=== PATIENT | male | born 1950 | race Caucasian/White ===

== ENCOUNTER → 2020-10-11 14:37 | Outpatient (BNVA) | payer MEDICARE, SELFPAY | PROVIDERS: PCP Internal Medicine; Visit Provider Internal Medicine | DX: B20 Human immunodeficiency virus [HIV] disease (principal) | CPT/HCPCS: 99202 ==

== ENCOUNTER 2020-12-16 16:01 | Emergency (ER) | payer MEDICARE, SELFPAY ==
--- NOTE | ~2020-12-16 | XR_ITS ---
EXAMINATION: XR CHEST CLINICAL INFORMATION: Shortness of breath COMPARISON: None TECHNIQUE: Frontal view of the chest was obtained. Examination is limited secondary to patient rotation. FINDINGS: The cardiac silhouette is normal in size. Patient is status post valve replacement. Retained epicardial pacing wires suspected. The lungs are well aerated. There is no lobar consolidation. No pleural effusion or pneumothorax. XR/XR chest 1V IMPRESSION: No acute pulmonary pathology.
[2020-12-16 16:18] VITALS: BP 153/110; PULSE 95; RESP 20; TEMP 36.5; O2SAT 96; BMI 19.0
--- NOTE | 2020-12-16 16:37 | ECG_ITS ---
Test Reason : SOB Blood Pressure : / mmHG Vent. Rate : 096 BPM Atrial Rate : 096 BPM P-R Int : 168 ms QRS Dur : 126 ms QT Int : 354 ms P-R-T Axes : 036 -73 108 degrees QTc Int : 447 ms Normal sinus rhythm Left axis deviation Left ventricular hypertrophy with QRS widening and repolarization abnormality Inferior infarct , age undetermined Abnormal ECG No previous ECGs available Referred By: Generic ED Physician Electronically Signed By:GRANT BARNARD
[2020-12-16 17:01] LABS: Hemoglobin 16.1 g/dl (14.0-18.0); Imm Gran Abs Auto 0.04 X10*3/uL (0.00-0.03); Imm Gran Pct Auto 0.4 % (0.0-0.4); MANUAL DIFF FLAG SCAN; Mean Corpuscular HGB Conc 33.3 g/dl (31.0-36.0); PLT CLUMP 1; SCAN SMEAR FLAG 1
[2020-12-16 17:03] LABS: Basophils Percent Auto 0.2 % (0-2); Eosinophils Absolute Auto 0.1 X10*3/uL (0.0-0.4); Eosinophils Percent Auto 0.5 % (0-4); Hematocrit 48.4 % (42-52); Lymphocytes Percent Auto 9.6 % (20-40); Mean Corpuscular Hemoglobin 31.4 pg (27.0-33.0); Mean Corpuscular Volume 94.3 fL (80-98); Mean Platelet Volume 11.1 fL (9.4-12.4); Monocytes Absolute Auto 0.7 X10*3/uL (0.1-1.2); Monocytes Percent Auto 6.5 % (2-11); Neutrophils Absolute Auto 8.9 X10*3/uL (2.0-8.3); Neutrophils Percent Auto 82.8 % (45-73); Platelet Count 102 X10*3/uL (160-400); Red Blood Count 5.13 X10*6/uL (4.60-5.80); Red Cell Distribution Width 17.6 % (11.0-16.0); White Blood Count 10.7 X10*3/uL (4.8-10.8)
[2020-12-16 17:05] LABS: INTERNATIONAL NORM RATIO 2.1 (0.9-1.1)
[2020-12-16 17:08] LABS: D Dimer 245 NG/ML; Partial Thromboplastin Time 49.8 SEC (24.1-38.0)
--- NOTE | 2020-12-16 17:15 | ED.SOB ---
HPI - SOB/Dyspnea General Chief Complaint: Dyspnea Stated Complaint: SOB Time Seen by Provider: 12/16/20 16:42 Source: patient Mode of arrival: EMS Limitations: no limitations History of Present Illness HPI Narrative: 70-year-old male who presents emergency department for evaluation of shortness of breath and dyspnea on exertion. The patient states that he had similar symptoms approximately 4 days prior and was hospitalized at [facility]. He states that he was hospitalized for 3 days for congestive heart failure. He states that he signed himself out yesterday against medical advice because he was not getting his HIV medications and this was making him upset. He states he did feel better when he left [facility]. He states that today he was watching television when he had a gradual onset of shortness of breath. He states that his symptoms got worse to the point where he is having trouble breathing and had significant dyspnea on exertion. He denied chest pain, fever, chills, cough, nausea, vomiting or diarrhea. He currently states that he feels like he needs oxygen and his O2 saturation while he is having this symptom was 97% on room air. The patient believes that he was treated with Lasix while he was at [facility] but does not believe that he is taking Lasix at this time. The patient is HIV positive and is currently taking Biktarvy. He recently transferred his care to our infectious disease physician and I do not have any baseline HIV viral studies on him. I did receive a discharge summary from [facility] admission date was 12/12/2020, discharged today was 12/16/2020-AMA. The patient presented to [facility] with 1 week of exertional dyspnea. According to discharge summary diagnosis was acute on chronic systolic heart failure and he was treated with Lasix 40 mg IV. He had an EF of 20-25%, aortic valve replacement 2008, on Coumadin. Patient also had a recent booster shot for his COVID-19 5 0 vaccination and was noted to have elevated troponins, the concern was that this may be secondary to demand ischemia verses vaccine induced myocarditis. Patient states that he was prescribed furosemide in the past has an old prescription for furosemide 40 mg. He states that he did take 40 mg tablet today but does not take furosemide on a regular basis. Related Data Home Medications Medication Instructions Recorded Confirmed aspirin 81 mg tablet,delayed 81 mg PO DAILY 10/11/20 release atorvastatin 80 mg tablet 80 mg PO DAILY 10/11/20 bictegravir 50 mg-emtricitabine 1 tab PO DAILY 10/11/20 200 mg-tenofovir alafenam 25 mg tablet (Biktarvy) bupropion HCl 150 mg 24 hr tablet, 150 mg PO QAM 10/11/20 extended release carvedilol 12.5 mg tablet (Coreg) 12.5 mg PO BID 10/11/20 digoxin 125 mcg (0.125 mg) tablet 125 mcg PO DAILY 10/11/20 finasteride 5 mg tablet (Proscar) 5 mg PO DAILY 10/11/20 lisinopril 5 mg tablet 5 mg PO DAILY 10/11/20 lithium carbonate 300 mg capsule 300 mg PO BEDTIME 10/11/20 warfarin 5 mg tablet 5 mg PO DAILY 10/11/20 Previous Rx's Medication Instructions Recorded alprazolam 1 mg tablet (Xanax) 1 mg PO BEDTIME 30 Days #30 tab 10/11/20 furosemide 20 mg tablet (Lasix) 20 mg PO DAILY #30 tab 12/16/20 Allergies Allergy/AdvReac Type Severity Reaction Status Date / Time rifampin Allergy Severe bleeding Verified 12/16/20 16:24 asparaginase Allergy Intermediate rash Verified 12/16/20 16:24 efavirenz Allergy Intermediate mental Verified 12/16/20 16:24 status change stavudine Allergy Intermediate rash Verified 12/16/20 16:24 zidovudine Allergy Intermediate anxiety Verified 12/16/20 16:24 Review of Systems Review of Systems: Yes all other systems are reviewed and are negative [facility] Past Medical History [facility] Narrative: Social history: The patient denies tobacco, alcohol and drug use. Medical History Arrhythmia CHF (congestive heart failure) Chronic insomnia Depression HIV (human immunodeficiency virus infection) HIV (human immunodeficiency virus infection) HTN (hypertension) Hyperlipidemia Non-Hodgkin lymphoma Surgical History Hx of appendectomy Mechanical heart valve present Social History Social History Patient Tobacco Use Status: Never used Tobacco Use of substances other than those prescribed or required for medical reasons: No Advance Directives: No Advance Directives Information Provided: No Physical Exam Vital Signs: Vital Signs: Last Vital Signs Temp 97.7 F 12/16/20 16:18 Pulse 90 12/16/20 18:11 Resp 26 H 12/16/20 18:11 BP 158/100 H 12/16/20 18:11 Pulse Ox 97 12/16/20 18:11 Body Mass Index 19.0 Const: Other: Very thin, chronically ill-appearing male, pleasant, cooperative, answers all questions appropriately, does not appear to be in respiratory distress. HENMT: Head: Yes normal to inspection, Yes normocephalic and Yes atraumatic Ears: external ears normal General nose exam: Normal external nose present Face and sinus: Yes normal facial exam Mouth: Normal oral and palatal mucosa present Throat: Yes posterior oropharynx normal Eyes: General: appearance normal, both eyes and all related structures Pupils: Equal, round and reactive pupils present Neck: Neck: Yes normal visual inspection, Yes no lymphadenopathy, Yes trachea midline and Yes supple Chest: Chest palpation & inspection: normal inspection of the chest and normal palpation of entire chest wall Resp: Effort & Inspection: normal respiratory effort and able to speak in complete sentences Auscultation: clear to auscultation bilaterally Cardio: Rate: regular rate Rhythm: regular rhythm Heart sounds: S1 normal heart sound present, S2 normal heart sound present and no murmurs GI: Inspection: Yes normal to inspection Palpation (GI): Soft to palpation, nontender and no guarding Auscultation: normal bowel sounds : General: Yes no CVA tenderness Back/Spine/Pelvis: Back: no CVA tenderness Skin: General skin exam: no rashes or lesions noted Neuro: Cranial nerves: Yes CN's II-XII intact bilaterally and Yes Equal, round and reactive pupils present Cognition (Neuro): normal cognition Motor exam (neuro): 5/5 motor strength present throughout Extrem: General: Yes normal to inspection Psych: Appearance: grossly normal Speech and movement: Normal speech and movement present Affect: normal affect Attitude: cooperative Thought process: Normal thought process present Thought content: Normal thought content present Course Course Course Narrative: 70-year-old male who presents emergency department for evaluation of gradual onset of shortness of breath that started today, patient was recently hospitalized at [facility] from 12/12/2020 until 12/15/2020 for acute on chronic congestive heart failure and elevated troponins. The patient left against medical advice. Vital signs reveal that he was afebrile with a temperature of 97.7?, respiratory rate was 20, pulse was 95 and O2 saturation was 96% on room air. Patient was hypertensive with a blood pressure of 153/110. Physical examination was otherwise unremarkable. I ordered a laboratory evaluation to include CBC, CMP, liver panel, PTT, PT/INR, D-dimer, COVID/influenza/RSV, digoxin level, troponin EKG. 1723: Patient's laboratory evaluation revealed a followed elevations, potassium 5.3, BUN 30, AST 46, ALT 61, alk-phos 133, T bili 2.6. Patient's INR was therapeutic at 2.1. ProBNP was elevated at 3676. Chest x-ray revealed no acute process according the radiologist reading. COVID 19, influenza and RSV were negative. Patient's high sensitivity troponin was elevated at 477 , repeat was ordered for 7:45 p.m. 2110: The patient's repeat high sensitivity troponin was 466.9 which was not significantly increased. I suspect that the patient's elevated troponin is chronic and may be related to his cardiomyopathy. The patient is feeling better and did have significant diuresis after receiving IV Lasix. The patient was given a prescription for Lasix (furosemide) 20 mg once a day. He is also advised to restrict his fluid intake to 1 L of fluid per day. The patient was discharged home. The patient was given verbal and printed instructions prior to discharge. The patient was advised to follow-up with his PCP in 2 days and to return to the emergency department if his symptoms get worse or if he develops any new symptoms that are concerning to him. MDM - SOB/Dyspnea Lab Data Result diagrams: 12/16/20 16:52 12/16/20 17:51 Labs: Lab Results 12/16/20 12/16/20 12/16/20 Range/Units 16:52 16:52 16:52 WBC 10.7 (4.8-10.8) X10*3/uL RBC 5.13 (4.60-5.80) X10*6/uL Hgb 16.1 (14.0-18.0) g/dl Hct 48.4 (42-52) % MCV 94.3 (80-98) fL MCH 31.4 (27.0-33.0) pg MCHC 33.3 (31.0-36.0) g/dl RDW 17.6 H (11.0-16.0) % Plt Count 102 L (160-400) X10*3/uL MPV 11.1 (9.4-12.4) fL Immature Gran % (Auto) 0.4 (0.0-0.4) % Neut % (Auto) 82.8 H (45-73) % Lymph % (Auto) 9.6 L (20-40) % Jasper % (Auto) 6.5 (2-11) % Eos % (Auto) 0.5 (0-4) % Baso % (Auto) 0.2 (0-2) % Lymph # (Auto) 1.0 L (1.2-4.9) X10*3/uL Jasper # (Auto) 0.7 (0.1-1.2) X10*3/uL Eos # (Auto) 0.1 (0.0-0.4) X10*3/uL Baso # (Auto) 0.0 (0.0-0.2) X10*3/uL Abs Immat Gran (auto) 0.04 H (0.00-0.03) X10*3/uL Absolute Neuts (auto) 8.9 H (2.0-8.3) X10*3/uL Absolute Nucleated RBC 0.000 (0.0-0.012) X10*3/uL Nucleated RBC % (auto) 0.0 (0.0-0.2) /100WBC Smear Tech's Comments VERIFIED PT (9.9-13.0) SEC INR (0.9-1.1) APTT (24.1-38.0) SEC D-Dimer NG/ML Sodium (135-145) mmol/L Potassium (3.3-5.1) mmol/L Chloride (96-108) mmol/L Carbon Dioxide (22-29) mmol/L Anion Gap (12-20) BUN (9-16) mg/dL Creatinine (0.5-1.4) mg/dL Estim Creat Clear Calc Estimated GFR Random Glucose (60-115) mg/dL Calcium (8.4-10.2) mg/dL Total Bilirubin (0.0-1.0) mg/dL Direct Bilirubin (0.0-0.5) mg/dL AST (5-37) U/L ALT (0-40) U/L Alkaline Phosphatase (39-117) U/L Troponin I High Sens (<3.5-35.0) ng/L B-Natriuretic Peptide 3676 H (<100) pg/mL Total Protein (6.5-8.0) g/dL Albumin (3.5-5.0) g/dL Digoxin (0.8-2.0) ng/mL Coronavirus (PCR) NEGATIVE (Negative) Influenza Type A (PCR) NEGATIVE (Negative) Influenza Type B (PCR) NEGATIVE (Negative) RSV RNA Qual (PCR) NEGATIVE (Negative) 12/16/20 12/16/20 12/16/20 Range/Units 16:52 16:52 17:51 WBC (4.8-10.8) X10*3/uL RBC (4.60-5.80) X10*6/uL Hgb (14.0-18.0) g/dl Hct (42-52) % MCV (80-98) fL MCH (27.0-33.0) pg MCHC (31.0-36.0) g/dl RDW (11.0-16.0) % Plt Count (160-400) X10*3/uL MPV (9.4-12.4) fL Immature Gran % (Auto) (0.0-0.4) % Neut % (Auto) (45-73) % Lymph % (Auto) (20-40) % Jasper % (Auto) (2-11) % Eos % (Auto) (0-4) % Baso % (Auto) (0-2) % Lymph # (Auto) (1.2-4.9) X10*3/uL Jasper # (Auto) (0.1-1.2) X10*3/uL Eos # (Auto) (0.0-0.4) X10*3/uL Baso # (Auto) (0.0-0.2) X10*3/uL Abs Immat Gran (auto) (0.00-0.03) X10*3/uL Absolute Neuts (auto) (2.0-8.3) X10*3/uL Absolute Nucleated RBC (0.0-0.012) X10*3/uL Nucleated RBC % (auto) (0.0-0.2) /100WBC Smear Tech's Comments PT 24.0 H (9.9-13.0) SEC INR 2.1 H (0.9-1.1) APTT 49.8 H (24.1-38.0) SEC D-Dimer 245 NG/ML Sodium 139 (135-145) mmol/L Potassium 5.3 H (3.3-5.1) mmol/L Chloride 104 (96-108) mmol/L Carbon Dioxide 24 (22-29) mmol/L Anion Gap 16 (12-20) BUN 30 H (9-16) mg/dL Creatinine 1.16 (0.5-1.4) mg/dL Estim Creat Clear Calc 47.5 Estimated GFR > 60 Random Glucose 82 (60-115) mg/dL Calcium 9.3 (8.4-10.2) mg/dL Total Bilirubin 2.6 H (0.0-1.0) mg/dL Direct Bilirubin 1.1 H (0.0-0.5) mg/dL AST 46 H (5-37) U/L ALT 61 H (0-40) U/L Alkaline Phosphatase 133 H (39-117) U/L Troponin I High Sens 477.5 H* (<3.5-35.0) ng/L B-Natriuretic Peptide (<100) pg/mL Total Protein 7.0 (6.5-8.0) g/dL Albumin 3.8 (3.5-5.0) g/dL Digoxin (0.8-2.0) ng/mL Coronavirus (PCR) (Negative) Influenza Type A (PCR) (Negative) Influenza Type B (PCR) (Negative) RSV RNA Qual (PCR) (Negative) 12/16/20 12/16/20 Range/Units 17:51 19:58 WBC (4.8-10.8) X10*3/uL RBC (4.60-5.80) X10*6/uL Hgb (14.0-18.0) g/dl Hct (42-52) % MCV (80-98) fL MCH (27.0-33.0) pg MCHC (31.0-36.0) g/dl RDW (11.0-16.0) % Plt Count (160-400) X10*3/uL MPV (9.4-12.4) fL Immature Gran % (Auto) (0.0-0.4) % Neut % (Auto) (45-73) % Lymph % (Auto) (20-40) % Jasper % (Auto) (2-11) % Eos % (Auto) (0-4) % Baso % (Auto) (0-2) % Lymph # (Auto) (1.2-4.9) X10*3/uL Jasper # (Auto) (0.1-1.2) X10*3/uL Eos # (Auto) (0.0-0.4) X10*3/uL Baso # (Auto) (0.0-0.2) X10*3/uL Abs Immat Gran (auto) (0.00-0.03) X10*3/uL Absolute Neuts (auto) (2.0-8.3) X10*3/uL Absolute Nucleated RBC (0.0-0.012) X10*3/uL Nucleated RBC % (auto) (0.0-0.2) /100WBC Smear Tech's Comments PT (9.9-13.0) SEC INR (0.9-1.1) APTT (24.1-38.0) SEC D-Dimer NG/ML Sodium (135-145) mmol/L Potassium (3.3-5.1) mmol/L Chloride (96-108) mmol/L Carbon Dioxide (22-29) mmol/L Anion Gap (12-20) BUN (9-16) mg/dL Creatinine (0.5-1.4) mg/dL Estim Creat Clear Calc Estimated GFR Random Glucose (60-115) mg/dL Calcium (8.4-10.2) mg/dL Total Bilirubin (0.0-1.0) mg/dL Direct Bilirubin (0.0-0.5) mg/dL AST (5-37) U/L ALT (0-40) U/L Alkaline Phosphatase (39-117) U/L Troponin I High Sens 466.9 H* (<3.5-35.0) ng/L B-Natriuretic Peptide (<100) pg/mL Total Protein (6.5-8.0) g/dL Albumin (3.5-5.0) g/dL Digoxin 0.8 (0.8-2.0) ng/mL Coronavirus (PCR) (Negative) Influenza Type A (PCR) (Negative) Influenza Type B (PCR) (Negative) RSV RNA Qual (PCR) (Negative) Discharge Plan Discharge Clinical Impression: Congestive heart failure Patient Disposition: Home, Self-Care Instructions: Heart Failure (ED), Fluid Restriction (ED) Additional Instructions: Your laboratory evaluation suggests that you have fluid in your lungs (pulmonary edema/congestive heart failure). You received Lasix (furosemide) 40 mg IV. I am starting you on Lasix (furosemide) 20 mg orally once a day. You should restrict your fluid to no more than 1 L of fluid per day, although fluid restriction instructions. You do have an elevated high sensitivity troponin however the repeat 3 hour high sensitivity troponin was lower suggesting that have not had a heart attack today. Follow-up with your doctor in 2 days. Please return to the emergency department if your symptoms get worse or if you develop any symptoms that are concerning to you. Prescriptions: New furosemide [Lasix] 20 mg tablet 20 mg PO DAILY Qty: 30 RF: 0 No Action atorvastatin 80 mg tablet 80 mg PO DAILY RF: 0 Biktarvy 50-200-25 mg tablet 1 tab PO DAILY RF: 0 bupropion HCl 150 mg tablet extended release 24 hr 150 mg PO QAM RF: 0 digoxin 125 mcg (0.125 mg) tablet 125 mcg PO DAILY RF: 0 finasteride [Proscar] 5 mg tablet 5 mg PO DAILY RF: 0 lisinopril 5 mg tablet 5 mg PO DAILY RF: 0 lithium carbonate 300 mg capsule 300 mg PO BEDTIME RF: 0 warfarin 5 mg tablet 5 mg PO DAILY RF: 0 carvedilol [Coreg] 12.5 mg tablet 12.5 mg PO BID RF: 0 aspirin 81 mg tablet,delayed release (DR/EC) 81 mg PO DAILY RF: 0 alprazolam [Xanax] 1 mg tablet 1 mg PO BEDTIME 30 Days Qty: 30 RF: 0
[2020-12-16 17:29] LABS: B Type Natriuretic Peptide 3676 pg/mL (<100)
[2020-12-16 17:39] LABS: Troponin-I High Sensitivity 477.5 ng/L (<3.5-35.0)
[2020-12-16 17:50] LABS: SLIDE REVIEW VERIFIED
[2020-12-16] MEDS: Furosemide 40 MG/4 ML VIAL IVPUSH (18:07)
[2020-12-16 18:11] VITALS: BP 158/100; PULSE 90; RESP 26; O2SAT 97
[2020-12-16 18:21] LABS: Alanine Aminotransferase 61 U/L (0-40); Albumin Level 3.8 g/dL (3.5-5.0); Alkaline Phosphatase 133 U/L (39-117); Anion Gap 16 (12-20); Aspartate Amino Transferase 46 U/L (5-37); Bilirubin Direct 1.1 mg/dL (0.0-0.5); Bilirubin Total 2.6 mg/dL (0.0-1.0); Blood Urea Nitrogen 30 mg/dL (9-16); Calcium 9.3 mg/dL (8.4-10.2); Carbon Dioxide 24 mmol/L (22-29); Chloride 104 mmol/L (96-108); Creatinine Clr Calc Pharmacy 47.5; Estimated Glomerular Filt Rate > 60; Glucose Random 82 mg/dL (60-115); Potassium 5.3 mmol/L (3.3-5.1); Sodium 139 mmol/L (135-145)
[2020-12-16 18:28] LABS: Digoxin 0.8 ng/mL (0.8-2.0)
[2020-12-16 18:38] LABS: Influenza A PCR NEGATIVE (Negative); Influenza B PCR NEGATIVE (Negative); Resp Syncy Virus RNA Qual PCR NEGATIVE (Negative); SARS COV2 PCR INHOUSE NEGATIVE (Negative)
--- NOTE | 2020-12-16 19:41 | PC.NURSE ---
pt was standing up and urinating on the floor. pt cleaned up and repeat trop being drawn soon. pt denies any complaints. pt alert, respirations n/l. skin w/d. will continue to monitor pt.
[2020-12-16 20:56] LABS: Troponin-I High Sensitivity 466.9 ng/L (<3.5-35.0)
== END 2020-12-16 22:43 | disposition home or self-care (01) ==
PROVIDERS: Emergency Provider Emergency Medicine Emergency Medical Services; PCP Family Medicine
DX: I11.0 Hypertensive heart disease with heart failure (principal); I50.9 Heart failure, unspecified; Z20.822 Contact with and (suspected) exposure to COVID-19; R06.02 Shortness of breath; B20 Human immunodeficiency virus [HIV] disease; E78.5 Hyperlipidemia, unspecified; C85.90 Non-Hodgkin lymphoma, unspecified, unspecified site; Z79.01 Long term (current) use of anticoagulants; Z79.899 Other long term (current) drug therapy; Z79.02 Long term (current) use of antithrombotics/antiplatelets; Z79.82 Long term (current) use of aspirin
CPT/HCPCS: 0241U; 36415; 71045; 80048; 80076; 80162; 83880; 84484; 85025; 85379; 85610; 85730; 93005; 96374; 99284; 99285; J1940

== ENCOUNTER 2021-11-30 15:30 | Emergency (ER) | payer OTHER, MEDICARE, SELFPAY ==
[2021-11-30 15:48] VITALS: BP 112/58; BP 119/64; PULSE 61; RESP 20; TEMP 36.8; O2SAT 95; O2SAT 96; BMI 16.9
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
== END 2021-11-30 17:17 | disposition home or self-care (01) ==
PROVIDERS: Emergency Provider Emergency Medicine Emergency Medical Services
DX: Z04.1 Encounter for examination and observation following transport accident (principal)
CPT/HCPCS: 99282; 99284

== ENCOUNTER 2022-01-18 20:58 | Inpatient (IN) | payer MEDICARE, SELFPAY ==
--- NOTE | ~2022-01-18 | XR_ITS ---
EXAMINATION: XR CHEST CLINICAL INFORMATION: Shortness of breath COMPARISON: Previous chest x-ray 01/18/[address] from yesterday TECHNIQUE: Frontal view of the chest was obtained. FINDINGS: The cardiac and mediastinal contours are stable. Median sternotomy wires and heart valve and neoplastic rings. There is thick bandlike atelectasis or small infiltrate in the right upper lung that is unchanged. There is increasing atelectasis or small infiltrates at the lung bases, right greater than left. There are small bilateral pleural effusions, right greater than left. No pneumothorax. No acute bone abnormality. XR/XR chest 1V IMPRESSION: Increasing atelectasis or small infiltrates and small bilateral pleural effusions, right greater than left. Stable thick bandlike atelectasis or small infiltrate in the right midlung.
--- NOTE | ~2022-01-18 | CT_ITS ---
EXAMINATION: CT CHEST WITHOUT CONTRAST CLINICAL INFORMATION: Hypoxic. COMPARISON: Chest radiograph from 01/18/2022. TECHNIQUE: Multidetector volumetric CT imaging of the chest was done. Axial MIP volume rendering provided. Sagittal and coronal reformatted images were obtained. This CT examination was performed using dose optimization techniques as appropriate, variously including the following: *Automated exposure control. *Adjustment of mA and/or kV according to patient size (this includes techniques or standardized protocols for targeted exams where dose is matched to indication/reason for exam; i.e. extremities or head). *Use of iterative reconstruction technique. DLP: 295 mGy-cm FINDINGS: LUNGS: Small to moderate right-sided and small left-sided pleural effusions. No evidence of pneumothorax. No demonstrated pleural mass or thickening. Associated mild compressive atelectasis of the dependent lungs. Platelike airspace consolidation is demonstrated within the upper lobes bilaterally as well as the right lower lobe. Multiple tree-in-bud opacities are noted within the left lung apex and inferolateral aspects of the upper lobes bilaterally. Mucus plugging of multiple distal bronchioles in the upper lobes bilaterally. The central airways are largely patent. MEDIASTINUM: Changes of prior median sternotomy. Aortic valve replacement and ascending aortic grafting. Annular rings are noted associated with the mitral and tricuspid valves. Epicardial wires are noted along the left and right ventricles. Global cardiac enlargement including biatrial enlargement. No pericardial effusion. No mediastinal free fluid or gas. No hilar or mediastinal lymphadenopathy. Coronary artery calcifications: Present - moderate. AXILLA: No lymphadenopathy. UPPER ABDOMEN: Limited evaluation of the upper abdomen without significant soft tissue abnormalities. VASCULATURE: The thoracic aorta is otherwise of normal contour and caliber with moderate calcific atherosclerotic disease. OSSEOUS STRUCTURES: Moderate multilevel degenerative changes of the spine. Multiple partially healed lateral rib fractures bilaterally. Respiratory motion partially limits evaluation for acute rib fractures. However, there is no demonstrated overtly displaced fractures of this time. No suspicious lytic or sclerotic osseous lesions demonstrated. No soft tissue masses demonstrated. CT/CT chest wo IV con IMPRESSION: 1. Small to moderate right-sided and small left-sided pleural effusions with associated compressive atelectasis. 2. Multifocal platelike regions of airspace consolidation within the bilateral upper lobes as well as the right lower lobe. This may represent atelectatic change; however, additional scattered tree-in-bud opacities throughout the upper lobes may indicate a superimposed infectious/inflammatory process. 3. Global cardiac enlargement. Aortic valve replacement with ascending aortic grafting. Annuloplasty rings of the tricuspid and mitral valves. Coronary calcifications. Fleischner guidelines were followed.
--- NOTE | ~2022-01-18 | XR_ITS ---
EXAMINATION: XR CHEST CLINICAL INFORMATION: Shortness of breath. COMPARISON: 01/20/2022 chest radiograph. TECHNIQUE: Frontal view of the chest was obtained. FINDINGS: Support devices: Multilevel sternotomy wires in place without apparent change. Mitral valve prosthesis in place. External cardiac lead overlies the left cardiac margin without abnormality. Mild bibasilar opacification with tracking in the fissure on the right. Mild bibasilar linear markings. The heart and mediastinal structures are unremarkable. XR/XR chest 1V IMPRESSION: Mild interval increase in bilateral pleural effusions and atelectasis, right greater than left, a component which may be secondary to lower lung volumes.
--- NOTE | ~2022-01-18 | XR_ITS ---
EXAMINATION: XR CHEST CLINICAL INFORMATION: Shortness of breath COMPARISON: 01/22/2022 TECHNIQUE: Frontal view of the chest was obtained. FINDINGS: No significant change from previous. Right midlung opacity may be fluid in the major fissure with adjacent atelectasis or infiltrate. On the left obscuration of left hemidiaphragm once again seen consistent with atelectasis or infiltrate left base. No obvious failure. The cardiac silhouette is comparable to previous. XR/XR chest 1V IMPRESSION: No change from most recent previous. Findings suggest fluid/thickening in the minor fissure on the right with adjacent atelectasis or infiltrate and left basilar opacity is unchanged. No failure. Attention to follow-up
--- NOTE | ~2022-01-18 | XR_ITS ---
EXAMINATION: XR CHEST CLINICAL INFORMATION: Shortness of breath. COMPARISON: Chest radiograph dated 12/08/2020. TECHNIQUE: Frontal view of the chest was obtained. FINDINGS: The heart, great vessels, pulmonary vasculature and mediastinum are stable. There is stable mild cardiomegaly. There has been a prior cardiac valvuloplasty. External pacemaker leads are redemonstrated. No pulmonary vascular congestion or congestive heart failure is seen. There is moderate plate-like atelectasis at the mid right lung adjacent to the accessory fissure, which appears elevated. There is mild elevation of the right hemidiaphragm. No acute osseous abnormality is seen. XR/XR chest 1V IMPRESSION: 1. There is stable cardiomegaly. There has been a prior cardiac valvuloplasty. No congestive heart failure is seen. 2. No focal infiltrate is seen. 3. There is moderate plate-like atelectasis in the mid right lung. There is elevation of the right hemidiaphragm.
--- NOTE | ~2022-01-18 | CT_ITS ---
EXAMINATION: CT HEAD WITHOUT CONTRAST CLINICAL INFORMATION: Altered mental status. COMPARISON: None TECHNIQUE: Contiguous axial imaging was performed from the skull base to vertex without intravenous administration of contrast. This CT examination was performed using dose optimization techniques as appropriate, variously including the following: *Automated exposure control *Adjustment of mA and/or kV according to patient size (this includes techniques or standardized protocols for targeted exams where dose is matched to indication/reason for exam; i.e. extremities or head) *Use of iterative reconstruction technique DLP: 7:30 mGy-cm FINDINGS: There is no acute intra-axial, extra-axial bleed, collection, masses or midline shift. There is mild perivesical hypodensity in both cerebral hemispheres without mass effect. The lateral ventricles are symmetrical but slightly enlarged no abnormality seen in the posterior fossa. Bone windows no calvarial abnormality. There is no scalp soft tissue abnormality. There is complete opacification of right maxillary sinus. Rest of the paranasal sinuses and mastoid air cells are well-aerated. CT/CT head/brain wo IV con IMPRESSION: No acute intracranial process seen.
[2022-01-18 21:04] VITALS: BP 130/70; PULSE 100; RESP 20; O2SAT 94; BMI 19.3
--- NOTE | 2022-01-18 21:11 | ECG_ITS ---
Test Reason : DYSPNEA Blood Pressure : / mmHG Vent. Rate : 103 BPM Atrial Rate : 000 BPM P-R Int : 000 ms QRS Dur : 138 ms QT Int : 404 ms P-R-T Axes : 000 -73 108 degrees QTc Int : 529 ms Poor data quality, interpretation may be adversely affected Atrial fibrillation with rapid ventricular response Left axis deviation Non-specific intra-ventricular conduction block Minimal voltage criteria for LVH, may be normal variant ( Anthony product ) Inferior infarct (cited on or before 16-DEC-2020) Cannot rule out Anterior infarct , age undetermined T wave abnormality, consider lateral ischemia Abnormal ECG When compared with ECG of 16-DEC-2020 17:18, Atrial fibrillation has replaced Sinus rhythm Referred By: Tammi Nieves Electronically Signed By:GRANT BARNARD
[2022-01-18 21:15] VITALS: BP 120/90; PULSE 99; RESP 24; O2SAT 100
[2022-01-18 21:40] VITALS: PULSE 107; RESP 24; O2SAT 80
--- NOTE | 2022-01-18 21:41 | PC.NURSE ---
Dr Nieves at [facility]. Pt O2 dropping low, into 79%. Pt bumped from 10-15 LPM with no improvement. Respiratory aware, will start bipap per Dr Nieves.
[2022-01-18 21:48] LABS: Lactic Acid 1.2 mmol/L (0.5-2.0)
[2022-01-18 21:51] LABS: Prothrombin Time 76.5 SEC (10.0-13.1)
[2022-01-18] MEDS: Furosemide 100 MG/10 ML VIAL 60 MG IVPUSH (21:53)
[2022-01-18 21:59] LABS: COVID-19 Test Negative (Negative)
[2022-01-18 22:00] VITALS: PULSE 102; RESP 20; TEMP 36.5
--- NOTE | 2022-01-18 22:10 | ED_ITS ---
HPI - SOB/Dyspnea General Chief Complaint: Dyspnea Stated Complaint: sob Time Seen by Provider: 01/18/22 21:11 Source: patient and EMS Mode of arrival: EMS Limitations: no limitations History of Present Illness HPI Narrative: patient comes to the emergency room complaining of shortness of breath. Patient states it started approximately 4 days ago. Patient lives by himself with his dogs. Patient reports that this started becoming very uncomfortable, then he called EMS. EMS reports that when they arrived to the patient's residence, patient's oxygen saturation was 84% on room air. Patient is known to have CHF, denies history of asthma or COPD. Patient has history of AFib as well, he is currently on blood thinners. EMS started him on 15 L, oxygen saturation improve between mid 80s to mid 90s. patient states that he feels more comfortable breathing On 15 L. Denies chest pain. Patient states that he is compliant with his medications Related Data Home Medications Medication Instructions Recorded Confirmed aspirin 81 mg tablet,delayed 81 mg PO DAILY 10/11/20 release atorvastatin 80 mg tablet 80 mg PO DAILY 10/11/20 bictegravir 50 mg-emtricitabine 1 tab PO DAILY 10/11/20 200 mg-tenofovir alafenam 25 mg tablet (Biktarvy) bupropion HCl 150 mg 24 hr tablet, 150 mg PO QAM 10/11/20 extended release carvedilol 12.5 mg tablet (Coreg) 12.5 mg PO BID 10/11/20 digoxin 125 mcg (0.125 mg) tablet 125 mcg PO DAILY 10/11/20 finasteride 5 mg tablet (Proscar) 5 mg PO DAILY 10/11/20 lisinopril 5 mg tablet 5 mg PO DAILY 10/11/20 lithium carbonate 300 mg capsule 300 mg PO BEDTIME 10/11/20 warfarin 5 mg tablet 5 mg PO DAILY 10/11/20 Previous Rx's Medication Instructions Recorded alprazolam 1 mg tablet (Xanax) 1 mg PO BEDTIME 30 days #30 tabs 10/11/20 furosemide 20 mg tablet (Lasix) 20 mg PO DAILY #30 tabs 12/16/20 Allergies Allergy/AdvReac Type Severity Reaction Status Date / Time rifampin Allergy Severe bleeding Verified 12/16/20 16:24 asparaginase Allergy Intermediate rash Verified 12/16/20 16:24 efavirenz Allergy Intermediate mental Verified 12/16/20 16:24 status change stavudine Allergy Intermediate rash Verified 12/16/20 16:24 zidovudine Allergy Intermediate anxiety Verified 12/16/20 16:24 Review of Systems Review of Systems: Constitutional : No Weight loss, No Fever, No Chills, No Night Sweats, No Fatigue, No Malaise ENT/Mouth : No Hearing loss, No Ear Pain, No Nasal Congestion, No Sinus Pain, No Hoarseness, No sore throat, No Rhinorrhea, No Swallowing Difficulty Eyes: No Eye Pain, No Swelling, No Redness, No Foreign Body, No Discharge, No Vision Changes Cardiovascular : No Chest Pain, complaining of shortness of breath, worse with exertion, positive orthopnea, worsening lower extremity edema Respiratory : No Cough, No Sputum, No Wheezing, No Smoke Exposure, complaining of dyspnea Gastrointestinal : No Nausea, No Vomiting, No Diarrhea, No Constipation, No abdominal Pain, No Hematochezia, No Melena Genitourinary : no irregular bleeding, No Dysuria, No Urinary Frequency, No Hematuria, No Urinary Incontinence, No Urgency, No Flank Pain, No Urinary Flow Changes, No Hesitancy Musculoskeletal : No joint pain, No Myalgias, No Joint Swelling Skin : No Skin Lesions, No rash Neuro : No Weakness, No Numbness, No Paresthesias, No Loss of Consciousness, No Dizziness, No Headache Psych : No Anxiety/Panic, No Depression, No SI/HI/AH/VH, No Social Issues, Heme/Lymph: No Bruising, No Bleeding,No Lymphadenopathy Endocrine : No Polyuria, No Polydipsia, No Temperature Intolerance PMF Past Medical History Medical History Arrhythmia CHF (congestive heart failure) Chronic insomnia Depression HIV (human immunodeficiency virus infection) HIV (human immunodeficiency virus infection) HTN (hypertension) Hyperlipidemia Non-Hodgkin lymphoma Surgical History Hx of appendectomy Mechanical heart valve present Social History Social History Alcohol intake: never Patient Tobacco Use Status: Never used Tobacco Use of substances other than those prescribed or required for medical reasons: No Advance Directives: No Advance Directives Information Provided: No Physical Exam Vital Signs: Vital Signs: Last Vital Signs Temp 97.7 F 01/18/22 22:00 Pulse 102 H 01/18/22 22:00 Resp 20 01/18/22 22:00 BP 120/90 H 01/18/22 21:15 Pulse Ox 80 L 01/18/22 21:40 O2 Del Method 01/18/22 21:40 O2 Flow Rate 15 01/18/22 21:40 BMI result Body Mass Index 19.3 Const: Other: Appearance: Alert. Oriented X3. No acute distress. Eyes: Pupils equal, round and reactive to light. ENT: Pharynx normal. + JVD Neck: Normal inspection. Neck supple. No lymph nodes noted. No crepitus CVS: Normal heart rate and rhythm. Pulses normal. Normal S1 and S2 Respiratory: in mild to moderaterespiratory distress, speaking full sentences, minimal bilateral crackles, goodair movement Abdomen: Soft and nontender. No rigidity. No distention. Skin: Skin warm and dry. Normal skin color. Normal skin turgor. Extremities: +2 pitting edema bilaterallyNo Lacerations. No Rash Neuro: Oriented X 3. No motor deficit. No sensory deficit. Moving all extremities. No slurred speech. CN 2 through 12 grossly intact Psych: calm, cooperative, normal affect on Course Course Course Narrative: patient's oxygen saturation was in the Low to mid 80s despite being on 15 L, patient was started on BiPAP, oxygen improved to the high 90s. Patient was given 60 mg IV of Lasix. Of patient's labs and imaging pending. of patient was weaned off BiPAP, oxygen saturation 96 on 4 L. I discussed with the patient that his INR is elevated, has acute kidney injury. However, patient also has CHF. Patient was given Lasix on arrival to the emergency room. At this time, we will not give fluids for NOAH. Patient has history of elevated troponins, today it is 2 eyes is normal. Days 1000. Patient has no chest pain. We are due at this time to obtain a 2nd set of troponin. Patient absolutely refuses. Patient started screaming, becoming belligerent. Patient through his urinal out the room into the hallway. I discussed with the patient that we do not have a full workup until we get blood work. Patient states that he does not care. Patient is alert and oriented x3. We will not obtain a 2nd troponin per patient's request. Patient being admitted to the hospitalist chest x-ray did not show any acute abnormalities. CT of the chest report which resolved at 02:00, shows possible pneumonia. Patient started on antibiotic at this time MDM - SOB/Dyspnea Lab Data Result diagrams: 01/18/22 23:45 01/18/22 23:45 Labs: Lab Results 01/18/22 01/18/22 01/18/22 Range/Units 21:24 21:26 21:28 WBC (4.8-10.8) X10*3/uL RBC (4.60-5.80) X10*6/uL Hgb (14.0-18.0) g/dl Hct (42.0-52.0) % MCV (80.0-98.0) fL MCH (27.0-33.0) pg MCHC (31.0-36.0) g/dl RDW (11.0-16.0) % Plt Count (160-400) X10*3/uL MPV (9.4-12.4) fL Immature Gran % (Auto) (0.0-0.4) % Neut % (Auto) (45-73) % Lymph % (Auto) (20-40) % Houghton % (Auto) (2-11) % Eos % (Auto) (0-4) % Baso % (Auto) (0-2) % Lymph # (Auto) (1.2-4.9) X10*3/uL [place]oughton # (Auto) (0.1-1.2) X10*3/uL Eos # (Auto) (0.0-0.4) X10*3/uL Baso # (Auto) (0.0-0.2) X10*3/uL Abs Immat Gran (auto) (0.00-0.03) X10*3/uL Absolute Neuts (auto) (2.0-8.3) x10*3/uL Absolute Nucleated RBC (0.0-0.012) X10*3/uL Nucleated RBC % (auto) (0.0-0.2) /100WBC PT 76.5 H (10.0-13.1) SEC INR 6.2 H* (0.9-1.1) VBG pH (7.32-7.43) VBG pCO2 mmHg VBG pO2 mmHg VBG HCO3 (22-26) mmol/L VBG O2 Saturation % VBG Base Excess mmol/L Sodium (135-145) mmol/L Potassium (3.3-5.1) mmol/L Chloride (96-108) mmol/L Carbon Dioxide (22-29) mmol/L Anion Gap (12-20) BUN (9-16) mg/dL Creatinine (0.5-1.4) mg/dL Estim Creat Clear Calc Estimated GFR Random Glucose (60-115) mg/dL Lactic Acid 1.2 (0.5-2.0) mmol/L Calcium (8.4-10.2) mg/dL Total Bilirubin (0.0-1.0) mg/dL Direct Bilirubin (0.0-0.5) mg/dL AST (5-37) U/L ALT (0-40) U/L Alkaline Phosphatase (39-117) U/L Troponin I High Sens (<3.5-35.0) ng/L B-Natriuretic Peptide (<100) pg/mL Total Protein (6.5-8.0) g/dL Albumin (3.5-5.0) g/dL COVID-19 ([facility]) Negative (Negative) COVID-19 Clin Com See Note 01/18/22 01/18/22 01/18/22 Range/Units 23:45 23:45 23:45 WBC 7.2 (4.8-10.8) X10*3/uL RBC 4.15 L (4.60-5.80) X10*6/uL Hgb 13.4 L (14.0-18.0) g/dl Hct 42.0 (42.0-52.0) % MCV 101.2 H (80.0-98.0) fL MCH 32.3 (27.0-33.0) pg MCHC 31.9 (31.0-36.0) g/dl RDW 15.4 (11.0-16.0) % Plt Count 103 L (160-400) X10*3/uL MPV 10.6 (9.4-12.4) fL Immature Gran % (Auto) 0.3 (0.0-0.4) % Neut % (Auto) 70.5 (45-73) % Lymph % (Auto) 17.2 L (20-40) % Houghton % (Auto) 10.3 (2-11) % Eos % (Auto) 1.3 (0-4) % Baso % (Auto) 0.4 (0-2) % Lymph # (Auto) 1.2 (1.2-4.9) X10*3/uL [place]oughton # (Auto) 0.7 (0.1-1.2) X10*3/uL Eos # (Auto) 0.1 (0.0-0.4) X10*3/uL Baso # (Auto) 0.0 (0.0-0.2) X10*3/uL Abs Immat Gran (auto) 0.02 (0.00-0.03) X10*3/uL Absolute Neuts (auto) 5.1 (2.0-8.3) x10*3/uL Absolute Nucleated RBC 0.000 (0.0-0.012) X10*3/uL Nucleated RBC % (auto) 0.0 (0.0-0.2) /100WBC PT (10.0-13.1) SEC INR (0.9-1.1) VBG pH (7.32-7.43) VBG pCO2 mmHg VBG pO2 mmHg VBG HCO3 (22-26) mmol/L VBG O2 Saturation % VBG Base Excess mmol/L Sodium 143 (135-145) mmol/L Potassium 4.9 (3.3-5.1) mmol/L Chloride 105 (96-108) mmol/L Carbon Dioxide 22 (22-29) mmol/L Anion Gap 21 H (12-20) BUN 44 H (9-16) mg/dL Creatinine 1.80 H (0.5-1.4) mg/dL Estim Creat Clear Calc 30.6 Estimated GFR 37 Random Glucose 60 (60-115) mg/dL Lactic Acid (0.5-2.0) mmol/L Calcium 9.3 (8.4-10.2) mg/dL Total Bilirubin 2.2 H (0.0-1.0) mg/dL Direct Bilirubin 1.1 H (0.0-0.5) mg/dL AST 31 (5-37) U/L ALT 22 (0-40) U/L Alkaline Phosphatase 130 H (39-117) U/L Troponin I High Sens 1006.4 H* (<3.5-35.0) ng/L B-Natriuretic Peptide 3430 H (<100) pg/mL Total Protein 6.9 (6.5-8.0) g/dL Albumin 3.5 (3.5-5.0) g/dL COVID-19 ([facility]) (Negative) COVID-19 Clin Com 01/18/22 Range/Units 23:53 WBC (4.8-10.8) X10*3/uL RBC (4.60-5.80) X10*6/uL Hgb (14.0-18.0) g/dl Hct (42.0-52.0) % MCV (80.0-98.0) fL MCH (27.0-33.0) pg MCHC (31.0-36.0) g/dl RDW (11.0-16.0) % Plt Count (160-400) X10*3/uL MPV (9.4-12.4) fL Immature Gran % (Auto) (0.0-0.4) % Neut % (Auto) (45-73) % Lymph % (Auto) (20-40) % Houghton % (Auto) (2-11) % Eos % (Auto) (0-4) % Baso % (Auto) (0-2) % Lymph # (Auto) (1.2-4.9) X10*3/uL [place] # (Auto) (0.1-1.2) X10*3/uL Eos # (Auto) (0.0-0.4) X10*3/uL Baso # (Auto) (0.0-0.2) X10*3/uL Abs Immat Gran (auto) (0.00-0.03) X10*3/uL Absolute Neuts (auto) (2.0-8.3) x10*3/uL Absolute Nucleated RBC (0.0-0.012) X10*3/uL Nucleated RBC % (auto) (0.0-0.2) /100WBC PT (10.0-13.1) SEC INR (0.9-1.1) VBG pH 7.35 (7.32-7.43) VBG pCO2 39 mmHg VBG pO2 41 mmHg VBG HCO3 22 (22-26) mmol/L VBG O2 Saturation 66.0 % VBG Base Excess -2.7 mmol/L Sodium (135-145) mmol/L Potassium (3.3-5.1) mmol/L Chloride (96-108) mmol/L Carbon Dioxide (22-29) mmol/L Anion Gap (12-20) BUN (9-16) mg/dL Creatinine (0.5-1.4) mg/dL Estim Creat Clear Calc Estimated GFR Random Glucose (60-115) mg/dL Lactic Acid (0.5-2.0) mmol/L Calcium (8.4-10.2) mg/dL Total Bilirubin (0.0-1.0) mg/dL Direct Bilirubin (0.0-0.5) mg/dL AST (5-37) U/L ALT (0-40) U/L Alkaline Phosphatase (39-117) U/L Troponin I High Sens (<3.5-35.0) ng/L B-Natriuretic Peptide (<100) pg/mL Total Protein (6.5-8.0) g/dL Albumin (3.5-5.0) g/dL COVID-19 ([facility]) (Negative) COVID-19 Clin Com Imaging Data CT scan - chest: Radiologist's impression: FINDINGS: LUNGS: Small to moderate right-sided and small left-sided pleural effusions. No evidence of pneumothorax. No demonstrated pleural mass or thickening. Associated mild compressive atelectasis of the dependent lungs. Platelike airspace consolidation is demonstrated within the upper lobes bilaterally as well as the right lower lobe. Multiple tree-in-bud opacities are noted within the left lung apex and inferolateral aspects of the upper lobes bilaterally. Mucus plugging of multiple distal bronchioles in the upper lobes bilaterally. The central airways are largely patent. MEDIASTINUM: Changes of prior median sternotomy. Aortic valve replacement and ascending aortic grafting. Annular rings are noted associated with the mitral and tricuspid valves. Epicardial wires are noted along the left and right ventricles. Global cardiac enlargement including biatrial enlargement. No pericardial effusion. No mediastinal free fluid or gas. No hilar or mediastinal lymphadenopathy. Coronary artery calcifications: Present - moderate. AXILLA: No lymphadenopathy. UPPER ABDOMEN: Limited evaluation of the upper abdomen without significant soft tissue abnormalities. VASCULATURE: The thoracic aorta is otherwise of normal contour and caliber with moderate calcific atherosclerotic disease. OSSEOUS STRUCTURES: Moderate multilevel degenerative changes of the spine. Multiple partially healed lateral rib fractures bilaterally. Respiratory motion partially limits evaluation for acute rib fractures. However, there is no demonstrated overtly displaced fractures of this time. No suspicious lytic or sclerotic osseous lesions demonstrated. No soft tissue masses demonstrated. CT/CT chest wo IV con IMPRESSION: 1. Small to moderate right-sided and small left-sided pleural effusions with associated compressive atelectasis. ? 2. Multifocal platelike regions of airspace consolidation within the bilateral upper lobes as well as the right lower lobe. This may represent atelectatic change; however, additional scattered tree-in-bud opacities throughout the upper lobes may indicate a superimposed infectious/inflammatory process. ? 3. Global cardiac enlargement. Aortic valve replacement with ascending aortic grafting. Annuloplasty rings of the tricuspid and mitral valves. Coronary calcifications. ? Fleischner guidelines were followed. Chest x-ray: Radiologist's impression: FINDINGS: The heart, great vessels, pulmonary vasculature and mediastinum are stable. There is stable mild cardiomegaly. There has been a prior cardiac valvuloplasty. External pacemaker leads are redemonstrated. No pulmonary vascular congestion or congestive heart failure is seen. There is moderate plate-like atelectasis at the mid right lung adjacent to the accessory fissure, which appears elevated. There is mild elevation of the right hemidiaphragm. No acute osseous abnormality is seen. XR/XR chest 1V IMPRESSION: ? 1. There is stable cardiomegaly. There has been a prior cardiac valvuloplasty. No congestive heart failure is seen. ? 2. No focal infiltrate is seen. ? 3. There is moderate plate-like atelectasis in the mid right lung. There is elevation of the right hemidiaphragm. Critical Care Time Critical Care Time Critical Care Time: Yes Total Critical Care Time: 120 Attestation: I have personally provided critical care time. Time includes review of lab data, radiology results, discussion with consultants, and monitoring for potential decompensation. Intervention performed as documented. Discharge Plan Discharge Clinical Impression: CHF (congestive heart failure), Pneumonia, Supratherapeutic INR Patient Disposition: Admitted As Inpatient Prescriptions: No Action furosemide [Lasix] 20 mg tablet 20 mg PO DAILY Qty: 30 0RF atorvastatin 80 mg tablet 80 mg PO DAILY Biktarvy 50-200-25 mg tablet 1 tab PO DAILY bupropion HCl 150 mg tablet extended release 24 hr 150 mg PO QAM digoxin 125 mcg (0.125 mg) tablet 125 mcg PO DAILY finasteride [Proscar] 5 mg tablet 5 mg PO DAILY lisinopril 5 mg tablet 5 mg PO DAILY lithium carbonate 300 mg capsule 300 mg PO BEDTIME warfarin 5 mg tablet 5 mg PO DAILY carvedilol [Coreg] 12.5 mg tablet 12.5 mg PO BID Rx Instructions: must administer with a meal/food aspirin 81 mg tablet,delayed release (DR/EC) 81 mg PO DAILY alprazolam [Xanax] 1 mg tablet 1 mg PO BEDTIME 30 Days Qty: 30 0RF
[2022-01-18 22:33] LABS: INTERNATIONAL NORM RATIO 6.2 (0.9-1.1)
[2022-01-18 23:53] LABS: MANUAL DIFF FLAG NO
[2022-01-18 23:54] LABS: Basophils Percent Auto 0.4 % (0-2); Eosinophils Absolute Auto 0.1 X10*3/uL (0.0-0.4); Eosinophils Percent Auto 1.3 % (0-4); Hemoglobin 13.4 g/dl (14.0-18.0); Imm Gran Abs Auto 0.02 X10*3/uL (0.00-0.03); Imm Gran Pct Auto 0.3 % (0.0-0.4); Lymphocytes Absolute Auto 1.2 X10*3/uL (1.2-4.9); Lymphocytes Percent Auto 17.2 % (20-40); Mean Corpuscular HGB Conc 31.9 g/dl (31.0-36.0); Mean Corpuscular Hemoglobin 32.3 pg (27.0-33.0); Mean Corpuscular Volume 101.2 fL (80.0-98.0); Mean Platelet Volume 10.6 fL (9.4-12.4); Monocytes Absolute Auto 0.7 X10*3/uL (0.1-1.2); Monocytes Percent Auto 10.3 % (2-11); Neutrophils Absolute Auto 5.1 x10*3/uL (2.0-8.3); Neutrophils Percent Auto 70.5 % (45-73); Platelet Count 103 X10*3/uL (160-400); Red Blood Count 4.15 X10*6/uL (4.60-5.80); Red Cell Distribution Width 15.4 % (11.0-16.0); White Blood Count 7.2 X10*3/uL (4.8-10.8)
[2022-01-18 23:58] LABS: VBG Base Excess -2.7 mmol/L; VBG HCO3 22 mmol/L (22-26); VBG pCO2 39 mmHg; VBG pH 7.35 (7.32-7.43); VBG pO2 41 mmHg
[2022-01-18 23:59] LABS: Venous Blood Gas Refer to POC result
[2022-01-19] VITALS (7 sets, daily range): BP systolic 90–115; BP diastolic 54–79; PULSE 60–91; RESP 16–22; TEMP 36.1–37; O2SAT 95–100
[2022-01-19 00:13] LABS: Alanine Aminotransferase 22 U/L (0-40); Albumin Level 3.5 g/dL (3.5-5.0); Alkaline Phosphatase 130 U/L (39-117); Anion Gap 21 (12-20); Aspartate Amino Transferase 31 U/L (5-37); Bilirubin Direct 1.1 mg/dL (0.0-0.5); Bilirubin Total 2.2 mg/dL (0.0-1.0); Blood Urea Nitrogen 44 mg/dL (9-16); Calcium 9.3 mg/dL (8.4-10.2); Carbon Dioxide 22 mmol/L (22-29); Chloride 105 mmol/L (96-108); Creatinine Clr Calc Pharmacy 30.6; Estimated Glomerular Filt Rate 37; Glucose Random 60 mg/dL (60-115); Potassium 4.9 mmol/L (3.3-5.1); Sodium 143 mmol/L (135-145); Total Protein 6.9 g/dL (6.5-8.0)
[2022-01-19 00:16] LABS: B Type Natriuretic Peptide 3430 pg/mL (<100)
[2022-01-19 00:17] LABS: Troponin-I High Sensitivity 1006.4 ng/L (<3.5-35.0)
--- NOTE | 2022-01-19 01:50 | PC.NURSE ---
Went to draw a second trop,pt refused. Dr Nieves and Rachel Butt aware
--- NOTE | 2022-01-19 03:01 | PC.NURSE ---
Report given to Portia JOSEPH. Pt will be going to room 3. Transported by [email or web address] on tele
[2022-01-19] MEDS: Acetaminophen 325 MG TABLET 650 MG PO (03:50)
[2022-01-19 06:41] LABS: MANUAL DIFF FLAG NO
[2022-01-19 06:51] LABS: Basophils Percent Auto 0.5 % (0-2); Eosinophils Absolute Auto 0.1 X10*3/uL (0.0-0.4); Eosinophils Percent Auto 1.1 % (0-4); Hematocrit 39.6 % (42.0-52.0); Hemoglobin 12.8 g/dl (14.0-18.0); Imm Gran Abs Auto 0.02 X10*3/uL (0.00-0.03); Imm Gran Pct Auto 0.4 % (0.0-0.4); Lymphocytes Absolute Auto 1.1 X10*3/uL (1.2-4.9); Lymphocytes Percent Auto 19.1 % (20-40); Mean Corpuscular HGB Conc 32.3 g/dl (31.0-36.0); Mean Corpuscular Hemoglobin 32.4 pg (27.0-33.0); Mean Corpuscular Volume 100.3 fL (80.0-98.0); Mean Platelet Volume 10.8 fL (9.4-12.4); Monocytes Absolute Auto 0.5 X10*3/uL (0.1-1.2); Monocytes Percent Auto 9.5 % (2-11); Neutrophils Absolute Auto 3.9 x10*3/uL (2.0-8.3); Neutrophils Percent Auto 69.4 % (45-73); Red Blood Count 3.95 X10*6/uL (4.60-5.80); Red Cell Distribution Width 15.2 % (11.0-16.0); White Blood Count 5.6 X10*3/uL (4.8-10.8)
[2022-01-19 06:54] LABS: Platelet Count 98 X10*3/uL (160-400)
--- NOTE | 2022-01-19 06:59 | PC.NURSE ---
0620 pt had a 7 beat of v-tach. notified.labs ordered
--- NOTE | 2022-01-19 07:02 | PM.IMHP ---
History of Present Illness Date of Service: 01/19/22 Chief Complaint: SOB 71-year-old male with past medical history of CHF, HIV, HTN, HLD, Aortic valve replacement non-Hodgkin lymphoma in remission, depression, presents to the hospital with complaints of shortness of breath, increased cough and sputum production. Reports symptoms started 4 days ago he denies any fever or chills, reports dyspnea on minimal exertion. Reports lower extremity edema. Has orthopnea as well as PND. He has leftover Lasix at home, he took 40 mg every day with no relief of his symptoms. Denies any chest pain, no abdominal pain nausea or vomiting, no diarrhea constipation, no urinary symptoms. on arrival of EMS patient was found to be 84% on room air. Patient was placed on 15L non-rebreather, but continued to be in the 80s. Patient was placed on BiPAP while in the ED for several hours with improvement his symptoms. Currently on 6 L satting 95-100% Labs are significant for WBC count of 7.2, hemoglobin of 13.4, hematocrit 42, INR 6.2, creatinine of 1.8 with a baseline of 1.16, troponin of 1006, BNP of 3430, he COVID-19 negative, chest x-ray nonspecific, chest CT shows evidence of multifocal platelike regions of airspace consolidation within the bilateral upper lobes as well as a right lower lobe concerning for pneumonia. As well as small to moderate right-sided and small left-sided pleural effusion. patient started on Lasix and will be admitted for further management Review of Systems Review of Systems: Yes all other systems are reviewed and are negative [facility] Medical History Arrhythmia CHF (congestive heart failure) Chronic insomnia Depression HIV (human immunodeficiency virus infection) HIV (human immunodeficiency virus infection) HTN (hypertension) Hyperlipidemia Non-Hodgkin lymphoma Surgical History Hx of appendectomy Mechanical heart valve present Social History Alcohol intake: never Patient Tobacco Use Status: Never used Tobacco Use of substances other than those prescribed or required for medical reasons: No Advance Directives: No Advance Directives Information Provided: No Meds Allergies Allergy/AdvReac Type Severity Reaction Status Date / Time rifampin Allergy Severe bleeding Verified 12/16/20 16:24 asparaginase Allergy Intermediate rash Verified 12/16/20 16:24 efavirenz Allergy Intermediate mental Verified 12/16/20 16:24 status change stavudine Allergy Intermediate rash Verified 12/16/20 16:24 zidovudine Allergy Intermediate anxiety Verified 12/16/20 16:24 Active Medications: Current Medications Acetaminophen (Acetaminophen 325 Mg Tablet) 650 mg PO Q6H PRN PRN Reason: Pain, Mild (Pain Scale 1-3) Last Admin: 01/19/22 03:50 Dose: 650 mg Docusate Sodium (Docusate Sodium 100 Mg Capsule) 100 mg PO DAILY PRN PRN Reason: Constipation Furosemide (Furosemide 40 Mg/4 Ml Vial) 40 mg IVPUSH BID@0900,1800 TOYA; Protocol Ceftriaxone Sodium 1 gm/ (Sodium Chloride) 50 mls @ 100 mls/hr IV Q24H TOYA Azithromycin 500 mg/ Sodium (Chloride) 250 mls @ 125 mls/hr IV Q24H TOYA Ondansetron HCl (Ondansetron Hcl 4 Mg/2 Ml Vial) 4 mg IVPUSH Q8H PRN PRN Reason: Nausea and Vomiting Sodium Chloride (0.9 % Sodium Chloride Flush 3 Ml Syringe) 3 ml IVFLUSH QSHIFT [facility] Home Medications Medication Instructions Recorded Confirmed Last Taken Type atorvastatin 80 mg tablet 80 mg PO DAILY 10/11/20 01/19/22 Unknown History bictegravir 50 mg-emtricitabine 1 tab PO DAILY 10/11/20 01/19/22 Unknown History 200 mg-tenofovir alafenam 25 mg tablet (Biktarvy) bupropion HCl 150 mg 24 hr tablet, 150 mg PO QAM 10/11/20 01/19/22 Unknown History extended release carvedilol 12.5 mg tablet (Coreg) 12.5 mg PO BID 10/11/20 01/19/22 Unknown History finasteride 5 mg tablet (Proscar) 5 mg PO DAILY 10/11/20 01/19/22 Unknown History lithium carbonate 300 mg capsule 300 mg PO BEDTIME 10/11/20 01/19/22 Unknown History warfarin 5 mg tablet 5 mg PO DAILY 10/11/20 01/19/22 Unknown History Physical Exam Vital Signs and Narrative: Vital Signs: Last Vital Signs Temp 97.3 F 01/19/22 03:53 Pulse 91 01/19/22 03:53 Resp 19 01/19/22 03:53 BP 110/64 01/19/22 03:53 Pulse Ox 100 01/19/22 03:53 O2 Del Method 01/19/22 03:53 O2 Flow Rate 6 01/19/22 03:53 BMI result Body Mass Index 19.3 Const: General: cooperative and no acute distress Orientation/consciousness: patient oriented x3 Eyes: General: appearance normal, both eyes and all related structures Pupils: Equal, round and reactive pupils present Neck: Other: prominent JVD Resp: Other: crackles bilaterally Effort & Inspection: normal respiratory effort and able to speak in complete sentences Cardio: Rate: regular rate Rhythm: regular rhythm GI: Palpation (GI): Soft to palpation Auscultation: normal bowel sounds Skin: General skin exam: no rashes or lesions noted Neuro: General: patient oriented x3 Cranial nerves: Yes Equal, round and reactive pupils present Cognition (Neuro): normal cognition Extrem: Other: 3+ lower extremity edema up to the knees General: Yes normal to inspection Results Labs CBC and Chem 7: 01/19/22 06:02 01/18/22 23:45 Labs: Laboratory Results - last 24 hr 01/18/22 01/18/22 01/18/22 21:24 21:26 21:28 MCV MCH MCHC RDW Plt Count MPV Immature Gran % (Auto) Neut % (Auto) Lymph % (Auto) [place] % (Auto) Eos % (Auto) Baso % (Auto) Lymph # (Auto) [place] # (Auto) Eos # (Auto) Baso # (Auto) Abs Immat Gran (auto) Absolute Neuts (auto) Absolute Nucleated RBC Nucleated RBC % (auto) PT 76.5 H INR 6.2 H* VBG pH VBG pCO2 VBG pO2 VBG HCO3 VBG O2 Saturation VBG Base Excess Anion Gap Estim Creat Clear Calc Estimated GFR Random Glucose Lactic Acid 1.2 Calcium Total Bilirubin Direct Bilirubin AST ALT Alkaline Phosphatase Troponin I High Sens B-Natriuretic Peptide Total Protein Albumin COVID-19 (REMEDIOS) Negative COVID-19 Clin Com See Note 01/18/22 01/18/22 01/18/22 23:45 23:45 23:45 MCV 101.2 H MCH 32.3 MCHC 31.9 RDW 15.4 Plt Count 103 L MPV 10.6 Immature Gran % (Auto) 0.3 Neut % (Auto) 70.5 Lymph % (Auto) 17.2 L [place] % (Auto) 10.3 Eos % (Auto) 1.3 Baso % (Auto) 0.4 Lymph # (Auto) 1.2 [place] # (Auto) 0.7 Eos # (Auto) 0.1 Baso # (Auto) 0.0 Abs Immat Gran (auto) 0.02 Absolute Neuts (auto) 5.1 Absolute Nucleated RBC 0.000 Nucleated RBC % (auto) 0.0 PT INR VBG pH VBG pCO2 VBG pO2 VBG HCO3 VBG O2 Saturation VBG Base Excess Anion Gap 21 H Estim Creat Clear Calc 30.6 Estimated GFR 37 Random Glucose 60 Lactic Acid Calcium 9.3 Total Bilirubin 2.2 H Direct Bilirubin 1.1 H AST 31 ALT 22 Alkaline Phosphatase 130 H Troponin I High Sens 1006.4 H* B-Natriuretic Peptide 3430 H Total Protein 6.9 Albumin 3.5 COVID-19 ([facility]MEDIOS) COVID-19 MEETiiN 01/18/22 01/19/22 23:53 06:02 MCV 100.3 H MCH 32.4 MCHC 32.3 RDW 15.2 Plt Count 98 L MPV 10.8 Immature Gran % (Auto) 0.4 Neut % (Auto) 69.4 Lymph % (Auto) 19.1 L [place] % (Auto) 9.5 Eos % (Auto) 1.1 Baso % (Auto) 0.5 Lymph # (Auto) 1.1 L [place] # (Auto) 0.5 Eos # (Auto) 0.1 Baso # (Auto) 0.0 Abs Immat Gran (auto) 0.02 Absolute Neuts (auto) 3.9 Absolute Nucleated RBC 0.000 Nucleated RBC % (auto) 0.0 PT INR VBG pH 7.35 VBG pCO2 39 VBG pO2 41 VBG HCO3 22 VBG O2 Saturation 66.0 VBG Base Excess -2.7 Anion Gap Estim Creat Clear Calc Estimated GFR Random Glucose Lactic Acid Calcium Total Bilirubin Direct Bilirubin AST ALT Alkaline Phosphatase Troponin I High Sens B-Natriuretic Peptide Total Protein Albumin COVID-19 ([facility]IOS) COVID-19 Clin Com Imaging Radiologist's Impressions: Impressions Chest X-Ray 01/18/22 21:55 IMPRESSION: 1. There is stable cardiomegaly. There has been a prior cardiac valvuloplasty. No congestive heart failure is seen. 2. No focal infiltrate is seen. 3. There is moderate plate-like atelectasis in the mid right lung. There is elevation of the right hemidiaphragm. Chest CT 01/19/22 00:30 IMPRESSION: 1. Small to moderate right-sided and small left-sided pleural effusions with associated compressive atelectasis. 2. Multifocal platelike regions of airspace consolidation within the bilateral upper lobes as well as the right lower lobe. This may represent atelectatic change; however, additional scattered tree-in-bud opacities throughout the upper lobes may indicate a superimposed infectious/inflammatory process. 3. Global cardiac enlargement. Aortic valve replacement with ascending aortic grafting. Annuloplasty rings of the tricuspid and mitral valves. Coronary calcifications. Fleischner guidelines were followed. Assessment and Plan (1) Acute respiratory failure with hypoxia: Status: Acute (2) Acute exacerbation of CHF (congestive heart failure): Status: Acute (3) Community acquired pneumonia: Status: Acute (4) Supratherapeutic INR: Status: Acute (5) Elevated troponin: Status: Acute Plan 71-year-old male with past medical history of CHF presents the hospital shortness of breath found to have acute CHF exacerbation # acute respiratory failure with hypoxia - likely multifactorial secondary to CHF exacerbation as well as pneumonia - continue oxygen supplement as required - treatment of CHF with Lasix, as well as pneumonia with antibiotics - monitor respiratory status # acute CHF exacerbation - has elevated BNP, orthopnea, PND, dyspnea, lower extremity edema as well as JVD and evidence of edema on chest CT - will treat with IV Lasix - will obtain echocardiogram, cardiology consulted # elevated troponin - likely type 2 in the setting of acute CHF as well as hypoxia - denies any chest pain, no EKG evidence of ACS - monitor in telemetry # supratherapeutic INR - no evidence of bleed - will hold INR at this time - continue monitoring PT INR # HIV - continue home regimen # aortic valve replacement - continue Coumadin once PT INR therapeutic DVT prophylaxis: Coumadin Pt will require a minimum 2 night hospital stay for oxygen requirements, IV Lasix, as well as IV antibiotics Quality Stroke Does the patient have a stroke diagnosis?: No VTE Prior VTE?: No VTE Risk Level:: Medical - moderate - high VTE Device Contraindication: Treatment Not Indicated VTE Drug Contraindication: N/A - Med Ordered
[2022-01-19 07:20] LABS: Anion Gap 19 (12-20); Blood Urea Nitrogen 47 mg/dL (9-16); Calcium 9.1 mg/dL (8.4-10.2); Carbon Dioxide 21 mmol/L (22-29); Chloride 105 mmol/L (96-108); Creatinine Clr Calc Pharmacy 32.6; Estimated Glomerular Filt Rate 40; Glucose Random 56 mg/dL (60-115); Magnesium 1.9 mg/dL (1.6-2.6); Potassium 4.2 mmol/L (3.3-5.1); Sodium 141 mmol/L (135-145)
[2022-01-19 07:28] LABS: Troponin-I High Sensitivity 926.5 ng/L (<3.5-35.0)
[2022-01-19 07:35] LABS: Glucose, Whole Blood 75 mg/dL (60-115)
[2022-01-19] MEDS: Azithromycin 500 MG in 0.9 % Sodium Chloride 250 ML 125 MG IV (08:05)
[2022-01-19] MEDS: cefTRIAXone sodium 1 GM in 0.9 % Sodium Chloride 50 ML IV (08:07)
[2022-01-19 09:17] LABS: Prothrombin Time 67.9 SEC (10.0-13.1)
[2022-01-19 09:23] LABS: INTERNATIONAL NORM RATIO 5.5 (0.9-1.1)
[2022-01-19] MEDS: ondansetron HCL 4 MG/2 ML VIAL IVPUSH (10:34)
[2022-01-19] MEDS: buPROPion HCl XL 150 MG TAB.ER.24H PO (10:43)
[2022-01-19] MEDS: Finasteride 5 MG TABLET PO (10:43)
[2022-01-19] MEDS: Atorvastatin Calcium 80 MG TABLET PO (10:44)
[2022-01-19] MEDS: carvediloL 6.25 MG TABLET PO ×2 (10:57→21:41)
[2022-01-19] MEDS: Bictegrav/Emtricit/Tenofov Ala TABLET 1 TAB PO (11:19)
--- NOTE | 2022-01-19 11:31 | PHA.MEDREC ---
Pharmacy Consult ? Medication Reconciliation Pharmacy has completed the medication reconciliation. Patient states they haven't filled furosemide 40 mg in years and it does not show up on claim history, but pt states they used them to help with fluid retention prior to admission. Pt states they've been able to keep warfarin 5mg daily based off diet. Patient states they've been taken off of the alprazolam by PCP, however wants to get back on the medication.
[2022-01-19] MEDS: Ibuprofen 600 MG TABLET PO (11:44)
--- NOTE | 2022-01-19 12:57 | MHC.CM.PN ---
met with npt who lives alone pt reports he has no servceis ,but he was promised servceis and it didnt happen he would very much want mow ,homemaker etc and a vna pt is gilma vax x 3 has home 02 says he can get his own ride home,dc plan home with new servcies
--- NOTE | 2022-01-19 14:15 | PM.CNCAR ---
History of Present Illness History of Present Illness Date of Service: 01/19/22 Chief complaint: CHF exacerbation Narrative: 71-year-old gentleman who is here for pneumonia and congestive heart failure. He has background history of HIV, aortic valve replacement with aortic root repair based on CT scan. He has been following in heart for further cardiovascular care. He is saying his ejection fraction is 20%. He also is saying that he was waiting to undergo a pacemaker. He has been experiencing shortness of breath and came in for that. His imaging has shown concern for pneumonia. He was given antibiotics and was also given some diuretics. He is saying that he uses diuretics at home as needed when he sees ankle edema he will use it but not on a daily basis. After the treatment he has been feeling better. [facility] Past Medical History Medical History Arrhythmia CHF (congestive heart failure) Chronic insomnia Depression HIV (human immunodeficiency virus infection) HIV (human immunodeficiency virus infection) HTN (hypertension) Hyperlipidemia Non-Hodgkin lymphoma Surgical History Surgical History Hx of appendectomy Mechanical heart valve present Social History Social History Alcohol intake: never Patient Tobacco Use Status: Never used Tobacco Use of substances other than those prescribed or required for medical reasons: No Advance Directives: No Advance Directives Information Provided: No service: No Meds Allergies Allergy/AdvReac Type Severity Reaction Status Date / Time rifampin Allergy Severe bleeding Verified 12/16/20 16:24 asparaginase Allergy Intermediate rash Verified 12/16/20 16:24 efavirenz Allergy Intermediate mental Verified 12/16/20 16:24 status change stavudine Allergy Intermediate rash Verified 12/16/20 16:24 zidovudine Allergy Intermediate anxiety Verified 12/16/20 16:24 Active Medications: Current Medications Acetaminophen (Acetaminophen 325 Mg Tablet) 650 mg PO Q6H PRN PRN Reason: Pain, Mild (Pain Scale 1-3) Last Admin: 01/19/22 03:50 Dose: 650 mg Alprazolam (Alprazolam 0.5 Mg Tablet) 1 mg PO BEDTIME TOYA Atorvastatin Calcium (Atorvastatin Calcium 80 Mg Tablet) 80 mg PO DAILY TOYA Last Admin: 01/19/22 10:44 Dose: 80 mg Bictegravir/Emtricitabine/Tenofovir (Bictegrav/Emtricit/Tenofov Ala Tablet) 1 tab PO DAILY [facility] Last Admin: 01/19/22 11:19 Dose: 1 tab Bupropion HCl (Bupropion Hcl Xl 150 Mg Tab.Er.24h) 150 mg PO DAILY [facility] Last Admin: 01/19/22 10:43 Dose: 150 mg Carvedilol (Carvedilol 6.25 Mg Tablet) 6.25 mg PO BID [facility]; Protocol Last Admin: 01/19/22 10:57 Dose: 6.25 mg Docusate Sodium (Docusate Sodium 100 Mg Capsule) 100 mg PO DAILY PRN PRN Reason: Constipation Finasteride (Finasteride 5 Mg Tablet) 5 mg PO DAILY [facility] Last Admin: 01/19/22 10:43 Dose: 5 mg Furosemide (Furosemide 40 Mg/4 Ml Vial) 40 mg IVPUSH BID@0900,1800 [facility]; Protocol Last Admin: 01/19/22 10:39 Dose: Not Given Ceftriaxone Sodium 1 gm/ (Sodium Chloride) 50 mls @ 100 mls/hr IV Q24H [facility] Last Infusion: 01/19/22 08:59 Dose: Infused Azithromycin 500 mg/ Sodium (Chloride) 250 mls @ 125 mls/hr IV Q24H [facility] Last Infusion: 01/19/22 08:28 Dose: 0 mls/hr [place] Carbonate ([place] Carbonate 300 Mg Capsule) 300 mg PO BEDTIME TOYA Ondansetron HCl (Ondansetron Hcl 4 Mg/2 Ml Vial) 4 mg IVPUSH Q8H PRN PRN Reason: Nausea and Vomiting Last Admin: 01/19/22 10:34 Dose: 4 mg Sodium Chloride (0.9 % Sodium Chloride Flush 3 Ml Syringe) 3 ml IVFLUSH QSHIFT [facility] Last Admin: 01/19/22 10:00 Dose: Not Given Home Medications Medication Instructions Recorded Confirmed Last Taken Type atorvastatin 80 mg tablet 80 mg PO BEDTIME 10/11/20 01/19/22 01/17/22 History bictegravir 50 mg-emtricitabine 1 tab PO BEDTIME 10/11/20 01/19/22 01/17/22 History 200 mg-tenofovir alafenam 25 mg tablet (Biktarvy) bupropion HCl 150 mg 24 hr tablet, 150 mg PO BEDTIME 06/23/21 10/01/22 09/29/22 History extended release finasteride 5 mg tablet (Proscar) 5 mg PO BEDTIME 10/11/20 01/19/22 01/17/22 History lithium carbonate 300 mg capsule 300 mg PO BEDTIME 10/11/20 01/19/22 01/17/22 History warfarin 5 mg tablet 5 mg PO DAILY@1800 10/11/20 01/19/22 01/17/22 History carvedilol 6.25 mg tablet 1 tab PO BID 01/19/22 01/19/22 01/17/22 History furosemide 40 mg tablet 40 mg PO DAILY 01/19/22 01/19/22 01/17/22 History Physical Exam Vital Signs: Vital Signs: Last Vital Signs Temp 97.7 F 01/19/22 11:39 Pulse 71 01/19/22 11:39 Resp 16 01/19/22 11:39 BP 110/64 01/19/22 11:39 Pulse Ox 100 01/19/22 11:39 O2 Del Method 01/19/22 11:39 O2 Flow Rate 6 01/19/22 11:39 BMI result Body Mass Index 19.3 GENERAL APPEARANCE: in no acute distress, pleasant. NECK: no carotid bruit, no jugular venous distention. Distended external jugular vein. SKIN: no suspicious lesions, warm and dry. HEART: no murmurs, regular rate and rhythm. LUNGS: clear to auscultation bilaterally. ABDOMEN: soft, nontender. EXTREMITIES: no edema. PERIPHERAL PULSES: equal. NEUROLOGIC: No gross deficits, AAO X 3 Objective Labs and Meds Result diagrams: 01/19/22 06:02 01/19/22 06:02 Lab results: Laboratory Results - last 24 hr 01/18/22 01/18/22 01/18/22 21:24 21:26 21:28 WBC RBC Hgb Hct MCV MCH MCHC RDW Plt Count MPV Immature Gran % (Auto) Neut % (Auto) Lymph % (Auto) [place] % (Auto) Eos % (Auto) Baso % (Auto) Lymph # (Auto) [place] # (Auto) Eos # (Auto) Baso # (Auto) Abs Immat Gran (auto) Absolute Neuts (auto) Absolute Nucleated RBC Nucleated RBC % (auto) PT 76.5 H INR 6.2 H* VBG pH VBG pCO2 VBG pO2 VBG HCO3 VBG O2 Saturation VBG Base Excess Sodium Potassium Chloride Carbon Dioxide Anion Gap BUN Creatinine Estim Creat Clear Calc Estimated GFR POC Glucose Random Glucose Lactic Acid 1.2 Calcium Magnesium Total Bilirubin Direct Bilirubin AST ALT Alkaline Phosphatase Troponin I High Sens B-Natriuretic Peptide Total Protein Albumin COVID-19 ([facility]) Negative COVID-19 Clin Com See Note 01/18/22 01/18/22 01/18/22 23:45 23:45 23:45 WBC 7.2 RBC 4.15 L Hgb 13.4 L Hct 42.0 MCV 101.2 H MCH 32.3 MCHC 31.9 RDW 15.4 Plt Count 103 L MPV 10.6 Immature Gran % (Auto) 0.3 Neut % (Auto) 70.5 Lymph % (Auto) 17.2 L [place] % (Auto) 10.3 Eos % (Auto) 1.3 Baso % (Auto) 0.4 Lymph # (Auto) 1.2 [place] # (Auto) 0.7 Eos # (Auto) 0.1 Baso # (Auto) 0.0 Abs Immat Gran (auto) 0.02 Absolute Neuts (auto) 5.1 Absolute Nucleated RBC 0.000 Nucleated RBC % (auto) 0.0 PT INR VBG pH VBG pCO2 VBG pO2 VBG HCO3 VBG O2 Saturation VBG Base Excess Sodium 143 Potassium 4.9 Chloride 105 Carbon Dioxide 22 Anion Gap 21 H BUN 44 H Creatinine 1.80 H Estim Creat Clear Calc 30.6 Estimated GFR 37 POC Glucose Random Glucose 60 Lactic Acid Calcium 9.3 Magnesium Total Bilirubin 2.2 H Direct Bilirubin 1.1 H AST 31 ALT 22 Alkaline Phosphatase 130 H Troponin I High Sens 1006.4 H* B-Natriuretic Peptide 3430 H Total Protein 6.9 Albumin 3.5 COVID-19 ([facility]) COVID-19 Clin Com 01/18/22 01/19/22 01/19/22 23:53 06:02 06:02 WBC 5.6 RBC 3.95 L Hgb 12.8 L Hct 39.6 L MCV 100.3 H MCH 32.4 MCHC 32.3 RDW 15.2 Plt Count 98 L MPV 10.8 Immature Gran % (Auto) 0.4 Neut % (Auto) 69.4 Lymph % (Auto) 19.1 L [place] % (Auto) 9.5 Eos % (Auto) 1.1 Baso % (Auto) 0.5 Lymph # (Auto) 1.1 L [place] # (Auto) 0.5 Eos # (Auto) 0.1 Baso # (Auto) 0.0 Abs Immat Gran (auto) 0.02 Absolute Neuts (auto) 3.9 Absolute Nucleated RBC 0.000 Nucleated RBC % (auto) 0.0 PT INR VBG pH 7.35 VBG pCO2 39 VBG pO2 41 VBG HCO3 22 VBG O2 Saturation 66.0 VBG Base Excess -2.7 Sodium 141 Potassium 4.2 Chloride 105 Carbon Dioxide 21 L Anion Gap 19 BUN 47 H Creatinine 1.69 H Estim Creat Clear Calc 32.6 Estimated GFR 40 POC Glucose Random Glucose 56 L* Lactic Acid Calcium 9.1 Magnesium 1.9 Total Bilirubin Direct Bilirubin AST ALT Alkaline Phosphatase Troponin I High Sens B-Natriuretic Peptide Total Protein Albumin COVID-19 ([facility]) COVID-19 [employer] Com 01/19/22 01/19/22 01/19/22 06:02 07:31 09:02 WBC RBC Hgb Hct MCV MCH MCHC RDW Plt Count MPV Immature Gran % (Auto) Neut % (Auto) Lymph % (Auto) [place] % (Auto) Eos % (Auto) Baso % (Auto) Lymph # (Auto) [place] # (Auto) Eos # (Auto) Baso # (Auto) Abs Immat Gran (auto) Absolute Neuts (auto) Absolute Nucleated RBC Nucleated RBC % (auto) PT 67.9 H INR 5.5 H* VBG pH VBG pCO2 VBG pO2 VBG HCO3 VBG O2 Saturation VBG Base Excess Sodium Potassium Chloride Carbon Dioxide Anion Gap BUN Creatinine Estim Creat Clear Calc Estimated GFR POC Glucose 75 Random Glucose Lactic Acid Calcium Magnesium Total Bilirubin Direct Bilirubin AST ALT Alkaline Phosphatase Troponin I High Sens 926.5 H* B-Natriuretic Peptide Total Protein Albumin COVID-19 ([facility]) COVID-19 Clin Com Imaging Radiologist's impression: Impressions Chest X-Ray 01/18/22 21:55 IMPRESSION: 1. There is stable cardiomegaly. There has been a prior cardiac valvuloplasty. No congestive heart failure is seen. 2. No focal infiltrate is seen. 3. There is moderate plate-like atelectasis in the mid right lung. There is elevation of the right hemidiaphragm. Chest CT 01/19/22 00:30 IMPRESSION: 1. Small to moderate right-sided and small left-sided pleural effusions with associated compressive atelectasis. 2. Multifocal platelike regions of airspace consolidation within the bilateral upper lobes as well as the right lower lobe. This may represent atelectatic change; however, additional scattered tree-in-bud opacities throughout the upper lobes may indicate a superimposed infectious/inflammatory process. 3. Global cardiac enlargement. Aortic valve replacement with ascending aortic grafting. Annuloplasty rings of the tricuspid and mitral valves. Coronary calcifications. Fleischner guidelines were followed. Assessment and Plan (1) Community acquired pneumonia: Status: Acute (2) Acute exacerbation of CHF (congestive heart failure): Status: Acute Plan 71-year-old gentleman presented for pneumonia. He has by his description cardiomyopathy and is waiting to undergo potentially Bi V AICD. He is following in [place]. Presenting with hypoxia due to pneumonia and congestive heart failure. Clinically he has improved significantly. I think can get 1 more dose of IV diuretics and then can be started on Lasix 40 mg daily. He was previously taking it p.r.n.. He is due to get procedures at [place] and would be following up with them. High sensitivity troponin levels elevated from pneumonia and CHF. This is a type 2 injury. Thank you for allowing me to participate in the care of your patient. Please feel free to contact me if you have any questions. Procedures Date of Service Date of Service: 01/19/22
--- NOTE | 2022-01-19 15:17 | PM.EVENT ---
Event Note Date of Service: 01/19/22 Event Note: Patient seen and examined. Agree with history and physical and plan as documented
--- NOTE | 2022-01-19 15:28 | PC.NURSE ---
pt repositioned and is now eating a chicken salad sandwich
--- NOTE | 2022-01-19 16:45 | PC.NURSE ---
c/o generalized itchiness - Clary KAY made aware, see orders
[2022-01-19] MEDS: Furosemide 40 MG/4 ML VIAL IVPUSH (16:54)
[2022-01-19] MEDS: diphenhydrAMINE HCL 25 MG TABLET PO (16:54)
[2022-01-19] MEDS: ALPRAZolam 0.5 MG TABLET 1 MG PO (21:40)
[2022-01-19] MEDS: Lithium Carbonate 300 MG CAPSULE PO (21:40)
[2022-01-19] MEDS: 0.9 % Sodium Chloride Flush 3 ML SYRINGE IVFLUSH (21:40)
[2022-01-20] VITALS (7 sets, daily range): BP systolic 91–110; BP diastolic 53–70; PULSE 60–82; RESP 16–19; TEMP 36.1–37.1; O2SAT 96–99
[2022-01-20] MEDS: cefTRIAXone sodium 1 GM in 0.9 % Sodium Chloride 50 ML IV (06:06)
[2022-01-20] MEDS: Azithromycin 500 MG in 0.9 % Sodium Chloride 250 ML 125 MG IV (06:37)
[2022-01-20] MEDS: Bictegrav/Emtricit/Tenofov Ala TABLET 1 TAB PO (08:06)
[2022-01-20] MEDS: Atorvastatin Calcium 80 MG TABLET PO (08:06)
[2022-01-20] MEDS: Finasteride 5 MG TABLET PO (08:06)
[2022-01-20] MEDS: buPROPion HCl XL 150 MG TAB.ER.24H PO (08:06)
[2022-01-20] MEDS: 0.9 % Sodium Chloride Flush 3 ML SYRINGE IVFLUSH ×3 (08:28→21:32)
[2022-01-20 10:24] LABS: MANUAL DIFF FLAG NO
[2022-01-20 10:29] LABS: Venous Blood Gas Refer to POC result
[2022-01-20 10:30] LABS: VBG Base Excess 0.2 mmol/L; VBG HCO3 27 mmol/L (22-26); VBG pCO2 52 mmHg; VBG pH 7.31 (7.32-7.43); VBG pO2 30 mmHg
[2022-01-20 10:43] LABS: Ammonia 33 umol/L (13-55); Basophils Percent Auto 0.3 % (0-2); Eosinophils Absolute Auto 0.1 X10*3/uL (0.0-0.4); Eosinophils Percent Auto 1.8 % (0-4); Hematocrit 40.1 % (42.0-52.0); Imm Gran Abs Auto 0.02 X10*3/uL (0.00-0.03); Imm Gran Pct Auto 0.3 % (0.0-0.4); Lymphocytes Absolute Auto 0.8 X10*3/uL (1.2-4.9); Lymphocytes Percent Auto 12.1 % (20-40); Mean Corpuscular HGB Conc 32.4 g/dl (31.0-36.0); Mean Corpuscular Hemoglobin 32.7 pg (27.0-33.0); Mean Corpuscular Volume 100.8 fL (80.0-98.0); Mean Platelet Volume 11.3 fL (9.4-12.4); Monocytes Absolute Auto 0.5 X10*3/uL (0.1-1.2); Monocytes Percent Auto 7.3 % (2-11); Neutrophils Absolute Auto 5.2 x10*3/uL (2.0-8.3); Neutrophils Percent Auto 78.2 % (45-73); Red Blood Count 3.98 X10*6/uL (4.60-5.80); Red Cell Distribution Width 15.2 % (11.0-16.0); White Blood Count 6.6 X10*3/uL (4.8-10.8)
[2022-01-20 10:44] LABS: Platelet Count 96 X10*3/uL (160-400)
[2022-01-20 10:54] LABS: Alanine Aminotransferase 21 U/L (0-40); Albumin Level 3.4 g/dL (3.5-5.0); Alkaline Phosphatase 124 U/L (39-117); Anion Gap 20 (12-20); Aspartate Amino Transferase 33 U/L (5-37); Bilirubin Total 1.2 mg/dL (0.0-1.0); Blood Urea Nitrogen 59 mg/dL (9-16); Calcium 8.6 mg/dL (8.4-10.2); Carbon Dioxide 21 mmol/L (22-29); Chloride 101 mmol/L (96-108); Creatinine Clr Calc Pharmacy 22.4; Estimated Glomerular Filt Rate 26; Glucose Random 109 mg/dL (60-115); Potassium 4.5 mmol/L (3.3-5.1); Sodium 137 mmol/L (135-145); Total Protein 6.8 g/dL (6.5-8.0)
[2022-01-20] MEDS: carvediloL 6.25 MG TABLET PO ×2 (11:25→21:32)
--- NOTE | 2022-01-20 11:29 | PC.NURSE ---
pt is lethargic today, refused O2 4L in the morning, soft BP hold Coreg and Furosemide, Dr notified at 1130, Dr requested to give Coreg, O2 on 2L with cont oxymetry at 98%, Dr notified will cont to monitor
--- NOTE | 2022-01-20 12:16 | HO.PM.IMPN ---
Subjective Subjective Date of Service: 01/20/22 Interval History: Extremely somnolent this a.m.. Persistent O2 requirement noted Review of Systems Denies chest pain Denies shortness of breath Denies nausea vomiting diarrhea Denies fever chills Physical Exam Vital Signs: Vital Signs: Last Vital Signs Temp 97.8 F 01/20/22 11:54 Pulse 71 01/20/22 11:54 Resp 16 01/20/22 11:54 BP 102/62 01/20/22 08:00 Pulse Ox 99 01/20/22 11:54 O2 Del Method 01/20/22 11:54 O2 Flow Rate 1 01/20/22 11:54 BMI result Body Mass Index 19.3 Const: Other: Somnolent but arousable. Stable sats at 4 L Resp: Other: Diminished throughout with scattered crackles at bases Cardio: Other: No S4; positive S1-S2; no S3 murmurs rubs or gallops GI: Other: Soft nontender nondistended normoactive bowel sounds Extrem: Other: No edema bilaterally Objective Data Active Medications Acetaminophen (Acetaminophen 325 Mg Tablet) 650 mg PO Q6H PRN PRN Reason: Pain, Mild (Pain Scale 1-3) Last Admin: 01/19/22 03:50 Dose: 650 mg Documented By: RENA Alprazolam (Alprazolam 0.5 Mg Tablet) 1 mg PO BEDTIME [facility] Last Admin: 01/19/22 21:40 Dose: 1 mg Documented By: BALDO Atorvastatin Calcium (Atorvastatin Calcium 80 Mg Tablet) 80 mg PO DAILY [facility] Last Admin: 01/20/22 08:06 Dose: 80 mg Documented By: DEE DEE Bictegravir/Emtricitabine/Tenofovir (Bictegrav/Emtricit/Tenofov Ala Tablet) 1 tab PO DAILY [facility] Last Admin: 01/20/22 08:06 Dose: 1 tab Documented By: DEE DEE Bupropion HCl (Bupropion Hcl Xl 150 Mg Tab.Er.24h) 150 mg PO DAILY [facility] Last Admin: 01/20/22 08:06 Dose: 150 mg Documented By: DEE DEE Carvedilol (Carvedilol 6.25 Mg Tablet) 6.25 mg PO BID [facility]; Protocol Last Admin: 01/20/22 11:25 Dose: 6.25 mg Documented By: DEE DEE Diphenhydramine HCl (Diphenhydramine Hcl 25 Mg Tablet) 25 mg PO Q4H PRN PRN Reason: Itching Last Admin: 01/19/22 16:54 Dose: 25 mg Documented By: LINDSAY Docusate Sodium (Docusate Sodium 100 Mg Capsule) 100 mg PO DAILY PRN PRN Reason: Constipation Finasteride (Finasteride 5 Mg Tablet) 5 mg PO DAILY [facility] Last Admin: 01/20/22 08:06 Dose: 5 mg Documented By: DEE DEE Ceftriaxone Sodium 1 gm/ (Sodium Chloride) 50 mls @ 100 mls/hr IV Q24H [facility] Last Infusion: 01/20/22 06:39 Dose: 0 mls/hr Documented By: BALDO Azithromycin 500 mg/ Sodium (Chloride) 250 mls @ 125 mls/hr IV Q24H [facility] Last Infusion: 01/20/22 10:36 Dose: 0 mls/hr Documented By: DEE DEE [place] Carbonate ([place] Carbonate 300 Mg Capsule) 300 mg PO BEDTIME [facility] Last Admin: 01/19/22 21:40 Dose: 300 mg Documented By: BALDO Ondansetron HCl (Ondansetron Hcl 4 Mg/2 Ml Vial) 4 mg IVPUSH Q8H PRN PRN Reason: Nausea and Vomiting Last Admin: 01/19/22 10:34 Dose: 4 mg Documented By: LINDSAY Sodium Chloride (0.9 % Sodium Chloride Flush 3 Ml Syringe) 3 ml IVFLUSH QSHIFT [facility] Last Admin: 01/20/22 08:28 Dose: 3 ml Documented By: DEE DEE Labs CBC & Chem 7: 01/20/22 10:20 01/20/22 10:20 Labs: Laboratory Results - last 24 hr 01/20/22 01/20/22 01/20/22 10:20 10:20 10:20 MCV 100.8 H MCH 32.7 MCHC 32.4 RDW 15.2 Plt Count 96 L MPV 11.3 Immature Gran % (Auto) 0.3 Neut % (Auto) 78.2 H Lymph % (Auto) 12.1 L [place] % (Auto) 7.3 Eos % (Auto) 1.8 Baso % (Auto) 0.3 Lymph # (Auto) 0.8 L [place] # (Auto) 0.5 Eos # (Auto) 0.1 Baso # (Auto) 0.0 Abs Immat Gran (auto) 0.02 Absolute Neuts (auto) 5.2 Absolute Nucleated RBC 0.000 Nucleated RBC % (auto) 0.0 VBG pH VBG pCO2 VBG pO2 VBG HCO3 VBG O2 Saturation VBG Base Excess Anion Gap 20 Estim Creat Clear Calc 22.4 Estimated GFR 26 Random Glucose 109 D Calcium 8.6 Total Bilirubin 1.2 H AST 33 ALT 21 Alkaline Phosphatase 124 H Ammonia 33 Total Protein 6.8 Albumin 3.4 L 01/20/22 10:23 MCV MCH MCHC RDW Plt Count MPV Immature Gran % (Auto) Neut % (Auto) Lymph % (Auto) [place] % (Auto) Eos % (Auto) Baso % (Auto) Lymph # (Auto) [place] # (Auto) Eos # (Auto) Baso # (Auto) Abs Immat Gran (auto) Absolute Neuts (auto) Absolute Nucleated RBC Nucleated RBC % (auto) VBG pH 7.31 L VBG pCO2 52 VBG pO2 30 VBG HCO3 27 H VBG O2 Saturation 32.0 VBG Base Excess 0.2 Anion Gap Estim Creat Clear Calc Estimated GFR Random Glucose Calcium Total Bilirubin AST ALT Alkaline Phosphatase Ammonia Total Protein Albumin Microbiology Microbiology Results: Microbiology 01/18/22 23:45 Blood Culture - Preliminary Blood - Venous No growth after 24 hours. 01/18/22 21:28 Blood Culture - Preliminary Blood - Venous No growth after 24 hours. Assessment and Plan (1) Acute respiratory failure with hypoxia: Status: Acute (2) Acute exacerbation of CHF (congestive heart failure): Status: Acute (3) Community acquired pneumonia: Status: Acute (4) Supratherapeutic INR: Status: Acute (5) HIV (human immunodeficiency virus infection): Status: Acute Plan 71-year-old male with past medical history of CHF presents the hospital shortness of breath found to have acute CHF exacerbation 1.Acute respiratory failure with hypoxia/acute CHF exacerbation/Pneumonia - continue ABTX -hold lasix today secondary to bump in creatinine -echocardiogram 2. 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
--- NOTE | 2022-01-20 16:49 | PC.NURSE ---
Received call from patient's sister Marley Su who stated she is patient's HCP. Marley will come to visit tomorrow, but left her number [phone] should we need to contact her. Marley also left contact number to patient's niece Sara Dial who also is patient's HCP. Confirmed above information with patient and was advised that Marley is his sister and his HCP.
[2022-01-20] MEDS: Lithium Carbonate 300 MG CAPSULE PO (21:32)
[2022-01-20] MEDS: ALPRAZolam 0.5 MG TABLET 1 MG PO (21:32)
[2022-01-21] VITALS (7 sets, daily range): BP systolic 88–110; BP diastolic 52–66; PULSE 60–108; RESP 17–20; TEMP 36.8–37.5; O2SAT 92–100; BMI 19.3
[2022-01-21] MEDS: cefTRIAXone sodium 1 GM in 0.9 % Sodium Chloride 50 ML IV (05:57)
[2022-01-21] MEDS: Azithromycin 500 MG in 0.9 % Sodium Chloride 250 ML 125 MG IV (06:33)
[2022-01-21 06:39] LABS: MANUAL DIFF FLAG NO
[2022-01-21 06:46] LABS: Basophils Percent Auto 0.2 % (0-2); Eosinophils Percent Auto 0.1 % (0-4); Hematocrit 36.6 % (42.0-52.0); Hemoglobin 11.9 g/dl (14.0-18.0); Imm Gran Abs Auto 0.05 X10*3/uL (0.00-0.03); Imm Gran Pct Auto 0.5 % (0.0-0.4); Lymphocytes Absolute Auto 0.7 X10*3/uL (1.2-4.9); Lymphocytes Percent Auto 7.5 % (20-40); Mean Corpuscular HGB Conc 32.5 g/dl (31.0-36.0); Mean Corpuscular Hemoglobin 33.1 pg (27.0-33.0); Mean Corpuscular Volume 101.7 fL (80.0-98.0); Mean Platelet Volume 11.7 fL (9.4-12.4); Monocytes Absolute Auto 0.7 X10*3/uL (0.1-1.2); Monocytes Percent Auto 6.7 % (2-11); Neutrophils Absolute Auto 8.3 x10*3/uL (2.0-8.3); Platelet Count 85 X10*3/uL (160-400); Red Cell Distribution Width 15.3 % (11.0-16.0); White Blood Count 9.8 X10*3/uL (4.8-10.8)
[2022-01-21 07:24] LABS: Alanine Aminotransferase 17 U/L (0-40); Albumin Level 3.1 g/dL (3.5-5.0); Alkaline Phosphatase 114 U/L (39-117); Anion Gap 17 (12-20); Aspartate Amino Transferase 22 U/L (5-37); Bilirubin Total 1.3 mg/dL (0.0-1.0); Blood Urea Nitrogen 64 mg/dL (9-16); Calcium 8.6 mg/dL (8.4-10.2); Carbon Dioxide 23 mmol/L (22-29); Chloride 104 mmol/L (96-108); Creatinine Clr Calc Pharmacy 25.1; Estimated Glomerular Filt Rate 30; Glucose Fasting 76 mg/dL (60-99); Potassium 3.6 mmol/L (3.3-5.1); Sodium 140 mmol/L (135-145)
[2022-01-21] MEDS: Lactated Ringers 1,000 ML 250 ML IVCONT (09:21)
[2022-01-21 10:00] LABS: D Dimer High Sensitivity 336 NG/ML
[2022-01-21 10:13] LABS: VBG Base Excess -2.3 mmol/L; VBG HCO3 24 mmol/L (22-26); VBG pCO2 50 mmHg; VBG pH 7.29 (7.32-7.43); VBG pO2 65 mmHg
[2022-01-21 10:14] LABS: Alanine Aminotransferase 17 U/L (0-40); Alkaline Phosphatase 112 U/L (39-117); Anion Gap 18 (12-20); Aspartate Amino Transferase 25 U/L (5-37); Bilirubin Total 1.1 mg/dL (0.0-1.0); Blood Urea Nitrogen 60 mg/dL (9-16); Calcium 8.4 mg/dL (8.4-10.2); Carbon Dioxide 20 mmol/L (22-29); Chloride 106 mmol/L (96-108); Creatinine Clr Calc Pharmacy 25.6; Estimated Glomerular Filt Rate 30; Glucose Fasting 85 mg/dL (60-99); Potassium 3.8 mmol/L (3.3-5.1); Sodium 140 mmol/L (135-145); Total Protein 6.1 g/dL (6.5-8.0)
[2022-01-21 10:15] LABS: Venous Blood Gas Refer to POC result
--- NOTE | 2022-01-21 11:52 | MHC.CLN ---
PT IS SEVERELY MALNOURISHED PT IS SEVERELY DEPLETED IN SUBCUTANEOUS FAT AND MUSCLE MASS WITH REPORTED SIGNIFICANT WT LOSS HOWEVER AMOUNT IS UNKNOWN AT THIS TIME DIET RX: 2GM NA -APPROPRIATE RECOMMEND ADDING ENSURE TID TO INCREASE KCALS AND PROMOTE WT GAIN SUPP TO PROVIDE 1050KCALS, 60G PROTEIN MONITOR PO INTAKE CLOSELY SEE ALSO FULL CLINICAL NUTRITION ASSESSMENT
--- NOTE | 2022-01-21 12:15 | P.PNIM_ITS ---
Subjective Subjective Date of Service: 01/21/22 Interval History: Extremely somnolent this a.m.. Persistent O2 requirement noted. Likely related to Xanax Review of Systems Denies chest pain Denies shortness of breath Denies nausea vomiting diarrhea Denies fever chills Physical Exam Vital Signs: Vital Signs: Last Vital Signs Temp 99.5 F 01/21/22 11:06 Pulse 84 01/21/22 11:06 Resp 18 01/21/22 11:06 BP 109/63 01/21/22 11:06 Pulse Ox 100 01/21/22 11:06 O2 Del Method 01/21/22 11:06 O2 Flow Rate 5 01/21/22 11:06 BMI result Body Mass Index 19.3 Const: Other: Somnolent but arousable. Stable sats at 4 L Resp: Other: Diminished throughout with scattered crackles at bases Cardio: Other: No S4; positive S1-S2; no S3 murmurs rubs or gallops GI: Other: Soft nontender nondistended normoactive bowel sounds Extrem: Other: No edema bilaterally Objective Data Active Medications Acetaminophen (Acetaminophen 325 Mg Tablet) 650 mg PO Q6H PRN PRN Reason: Pain, Mild (Pain Scale 1-3) Last Admin: 01/19/22 03:50 Dose: 650 mg Documented By: RENA Atorvastatin Calcium (Atorvastatin Calcium 80 Mg Tablet) 80 mg PO DAILY [facility] Last Admin: 01/20/22 08:06 Dose: 80 mg Documented By: DEE DEE Bictegravir/Emtricitabine/Tenofovir (Bictegrav/Emtricit/Tenofov Ala Tablet) 1 tab PO DAILY [facility] Last Admin: 01/20/22 08:06 Dose: 1 tab Documented By: DEE DEE Bupropion HCl (Bupropion Hcl Xl 150 Mg Tab.Er.24h) 150 mg PO DAILY [facility] Last Admin: 01/20/22 08:06 Dose: 150 mg Documented By: DEE DEE Carvedilol (Carvedilol 6.25 Mg Tablet) 6.25 mg PO BID [facility]; Protocol Last Admin: 01/20/22 21:32 Dose: 6.25 mg Documented By: MAEGAN Diphenhydramine HCl (Diphenhydramine Hcl 25 Mg Tablet) 25 mg PO Q4H PRN PRN Reason: Itching Last Admin: 01/19/22 16:54 Dose: 25 mg Documented By: LINDSAY Docusate Sodium (Docusate Sodium 100 Mg Capsule) 100 mg PO DAILY PRN PRN Reason: Constipation Finasteride (Finasteride 5 Mg Tablet) 5 mg PO DAILY [facility] Last Admin: 01/20/22 08:06 Dose: 5 mg Documented By: DEE DEE Ceftriaxone Sodium 1 gm/ (Sodium Chloride) 50 mls @ 100 mls/hr IV Q24H [facility] Last Infusion: 01/21/22 06:29 Dose: 0 mls/hr Documented By: MAEGAN Azithromycin 500 mg/ Sodium (Chloride) 250 mls @ 125 mls/hr IV Q24H [facility] Last Infusion: 01/21/22 09:32 Dose: 0 mls/hr Documented By: BRY Lactated Ringer's (Lr) 1,000 mls @ 250 mls/hr IVCONT .Q4H [facility] Stop: 01/21/22 13:14 Last Admin: 01/21/22 09:21 Dose: 250 mls/hr Documented By: BRY [place] Carbonate ([place] Carbonate 300 Mg Capsule) 300 mg PO BEDTIME [facility] Last Admin: 01/20/22 21:32 Dose: 300 mg Documented By: MAEGAN Ondansetron HCl (Ondansetron Hcl 4 Mg/2 Ml Vial) 4 mg IVPUSH Q8H PRN PRN Reason: Nausea and Vomiting Last Admin: 01/19/22 10:34 Dose: 4 mg Documented By: LINDSAY Sodium Chloride (0.9 % Sodium Chloride Flush 3 Ml Syringe) 3 ml IVFLUSH QSHIFT [facility] Last Admin: 01/21/22 09:32 Dose: Not Given Documented By: BRY Non-Admin Reason: IV Running Labs CBC & Chem 7: 01/21/22 05:53 01/21/22 09:43 Labs: Laboratory Results - last 24 hr 01/21/22 01/21/22 01/21/22 05:53 05:53 09:43 MCV 101.7 H MCH 33.1 H MCHC 32.5 RDW 15.3 Plt Count 85 L MPV 11.7 Immature Gran % (Auto) 0.5 H Neut % (Auto) 85.0 H Lymph % (Auto) 7.5 L [place] % (Auto) 6.7 Eos % (Auto) 0.1 Baso % (Auto) 0.2 Lymph # (Auto) 0.7 L [place] # (Auto) 0.7 Eos # (Auto) 0.0 Baso # (Auto) 0.0 Abs Immat Gran (auto) 0.05 H Absolute Neuts (auto) 8.3 Absolute Nucleated RBC 0.000 Nucleated RBC % (auto) 0.0 D-Dimer High Sensitivty 336 VBG pH VBG pCO2 VBG pO2 VBG HCO3 VBG O2 Saturation VBG Base Excess Anion Gap 17 Estim Creat Clear Calc 25.1 Estimated GFR 30 Fasting Glucose 76 Calcium 8.6 Total Bilirubin 1.3 H AST 22 ALT 17 Alkaline Phosphatase 114 Total Protein 6.0 L Albumin 3.1 L 01/21/22 01/21/22 09:43 09:48 MCV MCH MCHC RDW Plt Count MPV Immature Gran % (Auto) Neut % (Auto) Lymph % (Auto) [place] % (Auto) Eos % (Auto) Baso % (Auto) Lymph # (Auto) [place] # (Auto) Eos # (Auto) Baso # (Auto) Abs Immat Gran (auto) Absolute Neuts (auto) Absolute Nucleated RBC Nucleated RBC % (auto) D-Dimer High Sensitivty VBG pH 7.29 L VBG pCO2 50 VBG pO2 65 VBG HCO3 24 VBG O2 Saturation 89.0 VBG Base Excess -2.3 Anion Gap 18 Estim Creat Clear Calc 25.6 Estimated GFR 30 Fasting Glucose 85 Calcium 8.4 Total Bilirubin 1.1 H AST 25 ALT 17 Alkaline Phosphatase 112 Total Protein 6.1 L Albumin 3.0 L Microbiology Microbiology Results: Microbiology 01/18/22 23:45 Blood Culture - Preliminary Blood - Venous No growth after 48 hours. 01/18/22 21:28 Blood Culture - Preliminary Blood - Venous No growth after 48 hours. Assessment and Plan (1) Acute respiratory failure with hypoxia: Status: Acute (2) Acute exacerbation of CHF (congestive heart failure): Status: Acute (3) Community acquired pneumonia: Status: Acute Plan 71-year-old male with past medical history of CHF presents the hospital shortness of breath found to have acute CHF exacerbation. Increased somnolence likely related to Xanax use. 1.Acute respiratory failure with hypoxia/acute CHF exacerbation/Pneumonia - continue ABTX -hold lasix today secondary to bump in creatinine -echocardiogram 2. 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 Somnolence. . . Likely secondary to at HS Xanax -DC and follow 4.Aortic valve replacement - continue Coumadin once PT INR therapeutic INR elevated restart Coumadin when less than 3 Full code Patient will require ongoing hospitalization for treatment of his respiratory failure related to acute CHF exacerbation and pneumonia Quality Stroke Does the patient have a stroke diagnosis?: No VTE Prior VTE?: No VTE Risk Level:: Medical - moderate - high VTE Device Contraindication: Treatment Not Indicated VTE Drug Contraindication: N/A - Med Ordered
--- NOTE | 2022-01-21 15:18 | MHC.CM.PN ---
per rounds pt is not ready for dc dc plan remains home with [facility]
[2022-01-21] MEDS: 0.9 % Sodium Chloride Flush 3 ML SYRINGE IVFLUSH ×2 (16:09→20:23)
[2022-01-21] MEDS: carvediloL 6.25 MG TABLET PO (20:22)
[2022-01-21] MEDS: Lithium Carbonate 300 MG CAPSULE PO (20:23)
[2022-01-22] MEDS: cefTRIAXone sodium 1 GM in 0.9 % Sodium Chloride 50 ML IV (06:13)
[2022-01-22 06:45] LABS: MANUAL DIFF FLAG NO
[2022-01-22 06:57] LABS: Basophils Percent Auto 0.2 % (0-2); Eosinophils Percent Auto 0.1 % (0-4); Hematocrit 39.6 % (42.0-52.0); Hemoglobin 12.6 g/dl (14.0-18.0); Imm Gran Abs Auto 0.05 X10*3/uL (0.00-0.03); Imm Gran Pct Auto 0.5 % (0.0-0.4); Lymphocytes Absolute Auto 0.8 X10*3/uL (1.2-4.9); Lymphocytes Percent Auto 8.8 % (20-40); Mean Corpuscular HGB Conc 31.8 g/dl (31.0-36.0); Mean Corpuscular Hemoglobin 32.6 pg (27.0-33.0); Mean Corpuscular Volume 102.3 fL (80.0-98.0); Mean Platelet Volume 11.2 fL (9.4-12.4); Monocytes Absolute Auto 0.7 X10*3/uL (0.1-1.2); Neutrophils Absolute Auto 7.5 x10*3/uL (2.0-8.3); Neutrophils Percent Auto 82.4 % (45-73); Red Blood Count 3.87 X10*6/uL (4.60-5.80); Red Cell Distribution Width 15.6 % (11.0-16.0); White Blood Count 9.2 X10*3/uL (4.8-10.8)
[2022-01-22 06:58] LABS: Platelet Count 78 X10*3/uL (160-400)
--- NOTE | 2022-01-22 07:00 | CA_ITS ---
Transthoracic Echocardiogram Patient (Last, First, Middle): Eitan Poon, Gender: Male Date of : 1950 Age: 71 Procedure Date: 01/22/2022 Procedure Type: Transthoracic Echocardiogram Location: [facility] Height: 172.72 cm Weight: 57.15 kg BSA: 1.68 m2 Heart Rate: bpm BP: 110 / 65 mmHg Payroll Machine Operator: Referring MD: Adonay Alvarez MD Brass Buffer: Marcelo Quiroga MD Symptoms: CHF Study Quality: Adequate ECG Rhythm: Atrial Fibrillation Conclusions: - 1. Moderately dilated LV with perform only decreased LV systolic function with LVEF of 10-15% with elevated filling pressures 2. Moderately dilated right ventricle with at least moderate RV systolic dysfunction 3. Severe left atrial enlargement 4. Normally functioning mechanical prosthesis in aortic position 5. Mild mitral regurgitation 6. Mildly elevated right ventricular systolic pressure with severely elevated right atrial pressures 7. No gross pericardial effusion Findings Procedure Information Contrast agent, definity, is being given per protocol without apparent complications. Left Ventricle Moderately increased left ventricular cavity size. There is normal left ventricular wall thickness. The left ventricular systolic function is severely decreased. The visually estimated ejection fraction is between 10 15%. There is severe global hypokinesis. Diastolic function is indeterminate on the basis of available data. Elevated filling pressures. E/E prime ratio is >15, consistent with elevated filling pressures. Right Ventricle Moderately increased right ventricular cavity size. There is moderately decreased right ventricular systolic function. Atria The left atrium is severely dilated. Interatrial shunt cannot be excluded. The right atrium is mildly dilated. Aortic Valve A mechanical prosthetic aortic valve is present. The prosthetic aortic valve appears to be functioning normally. The mean gradient is 7 mmHg. The mechanical valve is well seated without abnormal rocking motion. The leaflets are not well visualized but mean gradient is within acceptable limits. Mitral Valve There is moderate anterior and posterior mitral leaflet thickening. There is mild mitral annular calcification. There is mild mitral valve regurgitation. There is no mitral valve stenosis. Pulmonic Valve The pulmonic valve is likely normal. Tricuspid Valve Likely normal tricuspid valve structure and function. There is mild tricuspid valve regurgitation. Significantly elevated right atrial pressure. Mild pulmonary hypertension is present. Great Vessels All visible segments of the aorta are normal in size. The pulmonary artery was not well visualized. Venous The inferior vena cava is moderately dilated and does not collapse with inspiration. Pericardium/Pleural There is no evidence of pericardial effusion. There is a bilateral pleural effusion. Prior Study Comparison No prior study available for comparison. Measurements 2D Linear Measurements IVSd: 0.98 0.6-0.9/0.6-1.0 cm LVIDd: 6.38 3.9-5.3/4.2-5.9 cm LVIDd Index: 3.80 2.4-3.2/2.2-3.1 cm/m2 LVIDs: 5.63 2.0-3.6 cm LVPWd: 0.92 0.7-1.1 cm Ao Root: 3.70 2.1-3.5 cm LA Diam: 3.60 2.7-3.8/3.0-4.0 cm LAIDs Index: 2.14 1.5-2.3 cm/m2 LV Mass: 320.93 67-162/88-224 g LV Mass Index: 191.03 43-95/49-115 g/m2 LVOT Diam: 2.30 3.0+(-)1.3 cm 2D Systolic Function EF 4C: 11.30 >55% EF 2C: 9.33 >55% EF BiP: 12.30 >55% Mitral Valve MV VTI: 0.12 MV Pk Willy: 1.19 MV Mn Willy: 0.63 MV Pk Grad: 6.00 MV Mn Grad: 2.00 MV Pk E: 1.19 MV Decel Time: 101.00 E'Lateral: 7.62 E'Medial: 5.11 E/E' Med: 23.30 E/E' Lat: 15.60 PHT: 30.00 MVA PHT: 7.33 MVA Continuity: 2.93 Decel [place]: 11.77 Aortic Valve AoV Pk Willy: 1.56 AoV Mn Willy: 1.17 AoV VTI: 0.25 AoV Pk Grad: 10.00 Aov Mn Grad: 7.00 CARMELO Cont.VTI: 1.48 LVOT LVOT Pk Willy: 0.58 LVOT Mn Willy: 0.41 LVOT VTI: 0.09 LVOT Pk Grad: 1.00 LVOT Mn Grad: 1.00 LVOT Diam: 2.30 LVOT Area: 4.15 Diastolic Function MV Pk E: 1.19 E'Medial: 5.11 E/E' Med: 23.30 E' Laterial: 7.62 E/E' Lat: 15.60 Right Ventricle TAPSE (mm): 12.00 Tricuspid Valve TV Pk Willy: 0.95 TV Mn Willy: 0.55 TV Pk Grad: 4.00 TV Mn Grad: 2.00 TR Pk Willy: 2.43 TR Pk Grad: 24.00 RA Press: 15.00 RVSP: 39.00 Great Vessels Aorta Ao Root-2D: 3.70 2.0-3.7 cm Ao Asc: 3.70 2.1-3.4 cm Pulmonary Valve PV Pk Willy: 0.58 Peak PV Grad: 1.00 Updated in Other Vendor System with Status of Final Marcelo Quiroga MD electronically signed on 01/22/2022 5:23:34 PM with status of Final
[2022-01-22 07:40] LABS: Alanine Aminotransferase 19 U/L (0-40); Albumin Level 3.1 g/dL (3.5-5.0); Alkaline Phosphatase 114 U/L (39-117); Anion Gap 19 (12-20); Aspartate Amino Transferase 31 U/L (5-37); Bilirubin Total 1.6 mg/dL (0.0-1.0); Blood Urea Nitrogen 54 mg/dL (9-16); Calcium 8.9 mg/dL (8.4-10.2); Carbon Dioxide 21 mmol/L (22-29); Chloride 103 mmol/L (96-108); Creatinine Clr Calc Pharmacy 31.3; Estimated Glomerular Filt Rate 38; Glucose Fasting 75 mg/dL (60-99); Sodium 139 mmol/L (135-145); Total Protein 6.3 g/dL (6.5-8.0)
[2022-01-22 07:43] VITALS: BP 105/58; PULSE 86; RESP 20; TEMP 36.6; O2SAT 96
--- NOTE | 2022-01-22 07:51 | MHC.CDI.CONC ---
CDI Concurrent Query Documentation Clarification: PHYSICIAN'S DOCUMENTATION REQUEST Date of Query: 01/22/22 0752 Patient Name: Eitan Poon Admit Date: 01/19/22 Dear Doctor, A review of the medical record indicates additional documentation may be needed. Please review below and update the documentation accordingly. Risk Factors/Clinical Indicators/Treatments Nutrition notes 01/21 - severely malnourished in context of chronic illness. Severely depleted subcutaneous fat and muscle mass, wt loss. Ensure TID. ASPEN Criteria* Acute Illness Chronic Illness Clinical Characteristic Non-Severe (2 or more criteria present) Severe (2 or more criteria present) Non-Severe (2 or more criteria present) Severe (2 or more criteria present) Energy Intake <75% for >7 days <=50% for >=5 days <75% for >=1 month <=75% for >=1 month Weight Loss 1 week 1 ? 2% >2% N/A N/A 1 month 5% >5% 5% >5% 3 months 7.5 % >7.5% 7.5% >7.5% 6 months N/A N/A 10% >10% 1 year N/A N/A 20% >20% Body Fat Mild Moderate Mild Severe Muscle Mass Mild Moderate Mild Severe Fluid Accumulation Mild Moderate to Severe Mild Severe Reduced Corporate Trust Officer Strength N/A Measurably Reduced N/A Measurably Reduced *[facility] Hospitalist, 2017 If possible, please provide in your progress notes, additional specificity regarding the severity of the malnutrition using the above information: Mild Moderate Severe Other (please specify) Unable to determine Use of terms such as suspected, likely, concern for, or probable (associated with a specific diagnosis that is being evaluated, monitored, or treated as if it exists) are acceptable and can be coded in the inpatient setting, when documented at the time of discharge. Thank you, Dorene Hinds [facility], CDIS Extension: [phone] Please use your independent medical judgment in providing your response. THIS QUERY IS PART OF THE PERMANENT MEDICAL RECORD Provider Response: Other Other Diagnosis: Severely malnourished and contact of chronic illness
[2022-01-22] MEDS: 0.9 % Sodium Chloride Flush 3 ML SYRINGE IVFLUSH ×3 (07:56→20:35)
[2022-01-22] MEDS: Azithromycin 500 MG in 0.9 % Sodium Chloride 250 ML 125 MG IV (07:57)
[2022-01-22] MEDS: Bictegrav/Emtricit/Tenofov Ala TABLET 1 TAB PO (10:36)
[2022-01-22] MEDS: Atorvastatin Calcium 80 MG TABLET PO (10:36)
[2022-01-22] MEDS: carvediloL 6.25 MG TABLET PO (10:36)
[2022-01-22] MEDS: buPROPion HCl XL 150 MG TAB.ER.24H PO (10:36)
[2022-01-22] MEDS: Finasteride 5 MG TABLET PO (10:36)
[2022-01-22] MEDS: Furosemide 40 MG/4 ML VIAL IVPUSH (10:46)
[2022-01-22 11:37] VITALS: BP 91/63; PULSE 96; RESP 20; TEMP 36.6; O2SAT 93
[2022-01-22] MEDS: Piperacillin Sodium/Tazobactam 3.375 GM in 0.9 % Sodium Chloride 50 ML IV ×2 (14:41→20:35)
[2022-01-22 15:09] VITALS: BP 102/58; PULSE 76; RESP 18; TEMP 37.3; O2SAT 94
[2022-01-22 16:01] LABS: Lithium 0.66 mmol/L (0.60-1.20)
[2022-01-22 19:02] VITALS: BP 93/61; PULSE 85; RESP 18; TEMP 37.2; O2SAT 94
[2022-01-22 19:46] LABS: VBG Base Excess -2.7 mmol/L; VBG HCO3 22 mmol/L (22-26); VBG pCO2 37 mmHg; VBG pH 7.37 (7.32-7.43); VBG pO2 51 mmHg
[2022-01-22 19:46] LABS: Venous Blood Gas Refer to POC result
[2022-01-23] MEDS: Piperacillin Sodium/Tazobactam 3.375 GM in 0.9 % Sodium Chloride 50 ML IV ×2 (01:35→08:42)
[2022-01-23 06:05] LABS: MANUAL DIFF FLAG NO
[2022-01-23 06:30] LABS: Basophils Percent Auto 0.1 % (0-2); Eosinophils Percent Auto 0.2 % (0-4); Hematocrit 36.6 % (42.0-52.0); Hemoglobin 11.9 g/dl (14.0-18.0); Imm Gran Abs Auto 0.03 X10*3/uL (0.00-0.03); Imm Gran Pct Auto 0.4 % (0.0-0.4); Lymphocytes Absolute Auto 0.7 X10*3/uL (1.2-4.9); Lymphocytes Percent Auto 8.9 % (20-40); Mean Corpuscular HGB Conc 32.5 g/dl (31.0-36.0); Mean Corpuscular Hemoglobin 32.6 pg (27.0-33.0); Mean Corpuscular Volume 100.3 fL (80.0-98.0); Mean Platelet Volume 11.3 fL (9.4-12.4); Monocytes Absolute Auto 0.7 X10*3/uL (0.1-1.2); Monocytes Percent Auto 8.2 % (2-11); Neutrophils Absolute Auto 6.7 x10*3/uL (2.0-8.3); Neutrophils Percent Auto 82.2 % (45-73); Red Blood Count 3.65 X10*6/uL (4.60-5.80); Red Cell Distribution Width 15.6 % (11.0-16.0); White Blood Count 8.2 X10*3/uL (4.8-10.8)
[2022-01-23 06:31] LABS: Platelet Count 86 X10*3/uL (160-400)
[2022-01-23 07:56] VITALS: BP 103/60; PULSE 99; RESP 20; TEMP 36.7; O2SAT 95
[2022-01-23] MEDS: carvediloL 6.25 MG TABLET PO (08:41)
[2022-01-23] MEDS: buPROPion HCl XL 150 MG TAB.ER.24H PO (08:42)
[2022-01-23] MEDS: Finasteride 5 MG TABLET PO (08:42)
[2022-01-23] MEDS: Atorvastatin Calcium 80 MG TABLET PO (08:42)
[2022-01-23] MEDS: Bictegrav/Emtricit/Tenofov Ala TABLET 1 TAB PO (08:42)
[2022-01-23] MEDS: 0.9 % Sodium Chloride Flush 3 ML SYRINGE IVFLUSH (08:46)
[2022-01-23] MEDS: Furosemide 40 MG/4 ML VIAL IVPUSH (10:34)
--- NOTE | 2022-01-23 10:56 | MHC.CLN ---
F/U PT IS SEVERELY MALNOURISHED SEE FULL CLINICAL NUTRITION ASSESSMENT DATED 01/21/22 DIET RX: 2GM NA -APPROPRIATE PT RECEIVING ENSURE TID TO INCREASE KCALS AND PROMOTE WT GAIN SUPP TO PROVIDE 1050KCALS, 60G PROTEIN MONITOR PO INTAKE CLOSELY
[2022-01-23 11:15] VITALS: BP 98/64; PULSE 89; RESP 22; TEMP 36.9; O2SAT 97
[2022-01-23 11:55] VITALS: BP 84/66
[2022-01-23 12:15] VITALS: BP 100/59
--- NOTE | 2022-01-23 12:24 | PC.NURSE ---
Addendum entered by Cierra Liang RN 01/23/22 15:07: Lasix gtt started per MD orders, pt to be transfered to [facility]. Original Note: Pt A+O to name and birthday. On assessment pt having increase WOB, required an increase in oxygen from 4L davis cannula to 10L oxymask to maintain saturations. Pt exhibits nonproductive, weak, loose cough. MD aware. New orders for 40mg lasix IVP. senior windows systems administrator per JUN. Informed MD about low BP. no new orders at this time. Call mancia within reach, bed alarm on, camera in room. safety precautions taken.
--- NOTE | 2022-01-23 12:55 | P.PNCA_ITS ---
Subjective Subjective Date of Service: 01/23/22 Principal diagnosis: Decompensated heart failure Interval history: Patient decompensated yesterday with worsening shortness of breath as per the hospitalist team. Underwent echocardiogram yesterday which shows marked LV systolic dysfunction with LVEF of 10-15% with significant biatrial enlargement but normally functioning prosthetic aortic valve with markedly elevated right atrial pressures. Overnight his blood pressures remained soft. He is lethargic and somewhat obtunded. Not able to provide much history and remains with increased work of breathing. Chest x-ray shows heart failure but also shows bilateral pleural effusion with atelectasis. He remains in atrial fibrillation with controlled ventricular response. This atrial fibrillation appears to be new compared to EKG from last year. Not able to find out about his prior history and prior cardiology follow-up. Checked with [facility] but patient is not in their healthcare system. Blood pressure after Lasix systolic 85. Review of Systems Review of Systems Yes Unobtainable due to mental status Physical Exam Vital Signs: Last Vital Signs Temp 98.5 F 01/23/22 11:15 Pulse 89 01/23/22 11:15 Resp 22 H 01/23/22 11:15 BP 100/59 L 01/23/22 12:15 Pulse Ox 97 01/23/22 11:15 O2 Del Method 01/23/22 11:15 O2 Flow Rate 10 01/23/22 11:15 BMI result Body Mass Index 19.3 Const General: cooperative, in distress severe and respiratory, ill appearing and patient obtunded Nutritional Appearance: cachectic and underweight Orientation/consciousness: patient obtunded Neck Neck: Yes trachea midline, Yes supple and Yes JVD Chest Chest palpation & inspection: other (Well-healed sternotomy scar) Resp Effort & Inspection: respiratory distress Auscultation: crackles bilateral, wheezes and diminished lung sounds Cardio Jugular venous distension: JVD Palpation: abnormal PMI displaced PMI Rhythm: abnormal rhythm irregularly irregular Heart sounds: S1 normal heart sound present, Clicking heart sound present ([place] closing click of [place] aortic valve), Gallop heart sound present S3 gallop, no murmurs and no rubs GI Inspection: Yes scaphoid Auscultation: normal bowel sounds Skin General skin exam: no rashes or lesions noted Neuro General: moves all extremities and patient obtunded Extrem General: Yes no clubbing, cyanosis or edema Objective Labs and Meds Result diagrams: 01/23/22 05:42 01/22/22 06:00 Lab results: Laboratory Results - last 24 hr 01/22/22 01/22/22 01/23/22 15:40 19:40 05:42 WBC 8.2 RBC 3.65 L Hgb 11.9 L Hct 36.6 L MCV 100.3 H MCH 32.6 MCHC 32.5 RDW 15.6 Plt Count 86 L MPV 11.3 Immature Gran % (Auto) 0.4 Neut % (Auto) 82.2 H Lymph % (Auto) 8.9 L [place] % (Auto) 8.2 Eos % (Auto) 0.2 Baso % (Auto) 0.1 Lymph # (Auto) 0.7 L [place] # (Auto) 0.7 Eos # (Auto) 0.0 Baso # (Auto) 0.0 Abs Immat Gran (auto) 0.03 Absolute Neuts (auto) 6.7 Absolute Nucleated RBC 0.000 Nucleated RBC % (auto) 0.0 VBG pH 7.37 VBG pCO2 37 VBG pO2 51 VBG HCO3 22 VBG O2 Saturation 80.0 VBG Base Excess -2.7 Selz 0.66 Imaging Radiologist's impression: Impressions Head CT 01/22/22 13:34 IMPRESSION: No acute intracranial process seen. Chest X-Ray 01/23/22 10:53 IMPRESSION: No change from most recent previous. Findings suggest fluid/thickening in the minor fissure on the right with adjacent atelectasis or infiltrate and left basilar opacity is unchanged. No failure. Attention to follow-up Progress Note: A&P Assessment and plan (1) Acute exacerbation of CHF (congestive heart failure): Status: Acute Assessment and Plan: Patient with acute decompensated yesterday morning. Appears significant fluid overload with significant elevated right-sided filling pressures. Markedly reduced LV ejection fraction 10-15% with soft blood pressure. He continues to have increased work of breathing. I think he requires more advanced support. At this point time discussed with [facility] CCU attending Pey[place] about patient's condition and he has accepted to be admitted to CCU. Will need Shae intense heart failure management including with right heart catheterization with diuresing possibly ionotropic support and vasopressor support. Discussed with the patient. He is agreeable. Discussed with the hospitalist team. 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 In addition to his heart failure and fluid overload he might also be short of breath related to his pleural effusion atelectasis. Continue supportive care. Incentive spirometry when patient is more awake needs to be pursued. Cannot add any other heart failure medications due to his low blood pressure. He did receive Coreg this morning. Will hold for now. Exact cause of his decompensation is unclear whether this is related to new onset atrial fibrillation with loss of AV synchrony. (2) Atrial fibrillation: Status: Acute Assessment and Plan: Atrial fibrillation with controlled ventricular response. This appears to be new onset. Currently on warfarin therapy for prosthetic valve. INR is supratherapeutic. No need further additional anticoagulation. Patient to be transferred to [facility]. Greater than 60 minutes was spent in managing his care Time Spent With Patient Time: Total time spent is greater than 50% in coordination of care (as documented) at patient's floor/unit and/or counseling patient: Progress Note: Quality Stroke Does the patient have a stroke diagnosis?: No Procedures Date of Service Date of Service: 01/23/22
--- NOTE | 2022-01-23 13:23 | P.DS_ITS ---
DS: Providers Provider Date of Service: 01/23/22 Date of admission: 01/19/22 01:10 Date of discharge: 01/23/22 Primary care physician: Ana Dalton MD Consults: 01/19/22 01:10 Consult to Cardiology Routine Consulting Provider: Buck Garcia Reason for consultation: CHF exacerbation Has provider been notified: No DS: Diagnosis Discharge Diagnosis (1) Acute exacerbation of CHF (congestive heart failure): Status: Acute (2) Atrial fibrillation: Status: Acute DS: Summary Hospital Course Hospital Course: 71-year-old male with past medical history of CHF, HIV, HTN, HLD,? Aortic valve replacement non-Hodgkin lymphoma in remission, depression, presents to the hospital with complaints of shortness of breath, increased cough and sputum production.? Reports symptoms started 4 days ago he denies any fever or chills, reports dyspnea on minimal exertion.? Reports lower extremity edema.? Has orthopnea as well as PND.? He has leftover Lasix at home, he took 40 mg every day with no relief of his symptoms.? Denies any chest pain, no abdominal pain nausea or vomiting, no diarrhea constipation, no urinary symptoms. ?On arrival of EMS patient was found to be 84% on room air.? Patient was placed on 15L non-rebreather, but continued to be in the 80s.? Patient was placed on BiPAP while in the ED for several hours with improvement his symptoms.? Currently on 6 L satting 95-100% Labs are significant for WBC count of 7.2, hemoglobin of 13.4, hematocrit 42, INR 6.2, creatinine of 1.8 with a baseline of 1.16, troponin of 1006, BNP of 3430, he COVID-19 negative, chest x-ray nonspecific, chest CT shows evidence of? multifocal platelike regions of airspace consolidation within the bilateral upper lobes as well as a right lower lobe concerning for pneumonia.? As well as small to moderate right-sided and small left-sided pleural effusion. Hospital course Patient was admitted to telemetry and pulse dosed with IV Lasix. He was treated with ceftriaxone azithromycin community-acquired pneumonia. Over the course of the next 48 hours patient became more somnolent. Seen in consultation by Cardiology; echo demonstrated LVEF 10-15% along with atrial fibrillation. Discussed with Cardiology; started on Lasix drip no every transfer to [facility] for further care Time Spent with Patient Time attestation: Total time spent providing and/or coordinating discharge services: Discharge coordination time: Greater than 30 minutes Quality: Safe Use of Opioids Does Pt have an Active Cancer Diagnosis on the Problem List?: No Quality: Stroke Does the patient have a stroke diagnosis?: No Physical Exam Vital Signs: Vital Signs: Last Vital Signs Temp 98.5 F 01/23/22 11:15 Pulse 89 01/23/22 11:15 Resp 22 H 01/23/22 11:15 BP 100/59 L 01/23/22 12:15 Pulse Ox 97 01/23/22 11:15 O2 Del Method 01/23/22 11:15 O2 Flow Rate 10 01/23/22 11:15 BMI result Body Mass Index 19.3 Const: Other: Somnolent but arousable. Stable sats at 4 L Resp: Other: Diminished throughout with scattered crackles at bases Cardio: Other: No S4; positive S1-S2; no S3 murmurs rubs or gallops GI: Other: Soft nontender nondistended normoactive bowel sounds Extrem: Other: No edema bilaterally DS: Data Data Completed and Pending Labs on day of discharge: Laboratory Results - last 24 hr 01/22/22 01/22/22 01/23/22 15:40 19:40 05:42 WBC 8.2 RBC 3.65 L Hgb 11.9 L Hct 36.6 L MCV 100.3 H MCH 32.6 MCHC 32.5 RDW 15.6 Plt Count 86 L MPV 11.3 Immature Gran % (Auto) 0.4 Neut % (Auto) 82.2 H Lymph % (Auto) 8.9 L [place] % (Auto) 8.2 Eos % (Auto) 0.2 Baso % (Auto) 0.1 Lymph # (Auto) 0.7 L [place] # (Auto) 0.7 Eos # (Auto) 0.0 Baso # (Auto) 0.0 Abs Immat Gran (auto) 0.03 Absolute Neuts (auto) 6.7 Absolute Nucleated RBC 0.000 Nucleated RBC % (auto) 0.0 VBG pH 7.37 VBG pCO2 37 VBG pO2 51 VBG HCO3 22 VBG O2 Saturation 80.0 VBG Base Excess -2.7 [place] 0.66 Preliminary micro results at discharge 01/18/22 23:45 Blood Culture - Preliminary Blood - Venous No growth after 48 hours. 01/18/22 21:28 Blood Culture - Preliminary Blood - Venous No growth after 48 hours. Discharge Plan Discharge Anticipated Discharge Date/Time: 01/23/22 13:17 Patient Disposition: Xfer Acute Care Hospital Discharge Diagnosis: Acute exacerbation of systolic heart failure Referrals: Ana Dalton MD [Primary Care Provider] - 1 Week Discharge Medications: New carvedilol 6.25 mg Tablet 6.25 mg PO BID Qty: 60 0RF Protocol: Hold for SBP/HR < HOLD for SBP < : 90 HOLD for HR < : 60 Continued carvedilol 6.25 mg tablet 1 tab PO BID atorvastatin 80 mg tablet 80 mg PO BEDTIME Biktarvy 50-200-25 mg tablet 1 tab PO BEDTIME bupropion HCl 150 mg tablet extended release 24 hr 150 mg PO BEDTIME finasteride [Proscar] 5 mg tablet 5 mg PO BEDTIME lithium carbonate 300 mg capsule 300 mg PO BEDTIME warfarin 5 mg tablet 5 mg PO DAILY@1800 Discontinued furosemide 40 mg Tablet 40 mg PO DAILY Discharge Orders: Discharge Order (Routine); Ordered 01/23/22 Ordered By: Lopez Means Diet: Advance to usual diet Activity on Discharge: As tolerated Stand Alone Forms: Patient Portal Discharge page Care Plan Goals: As per [facility] Health Concerns: As per Cardiology team Plan of Treatment: As per Cardiology team Assessment: See discharge summary
--- NOTE | 2022-01-23 13:28 | MHC.CM.PN ---
pt transferred to [facility]
[2022-01-23 13:59] VITALS: BP 100/57; O2SAT 97
[2022-01-23] MEDS: Furosemide 200 MG in 0.9 % Sodium Chloride 80 ML IVCONT (14:07)
--- NOTE | 2022-01-23 14:08 | MHC.SLORD ---
Speech Language Pathology Order Status: Per Dr. Means, pt transferring to [facility].
--- NOTE | 2022-02-08 07:56 | P.CDIR_ITS ---
Documented by User: Dorene Hinds CCS, CDIS 02/08/22 08:00 Retrospective Query PHYSICIAN'S DOCUMENTATION REQUEST Date of Query: 02/08/22 [id number] Patient Name: Eitan Poon Admit Date: 01/19/22 Dear Doctor, A review of the medical record indicates additional documentation may be needed. Please review below and update the documentation accordingly. Clinical Indicators: Risk Factors/Clinical Indicators/Treatments Nutrition notes 01/21/22 - Severely malnourished in the context of chronic illness. Severely depleted subcutaneous fat and muscle mass, weight loss. Cardiology notes: patient is ill appearing, obtunded and cachectic. ASPEN Criteria* Acute Illness Chronic Illness Clinical Characteristic Non-Severe (2 or more criteria present) Severe (2 or more criteria present) Non-Severe (2 or more criteria present) Severe (2 or more criteria present) Energy Intake <75% for >7 days <=50% for >=5 days <75% for >=1 month <=75% for >=1 month Weight Loss 1 week 1 ? 2% >2% N/A N/A 1 month 5% >5% 5% >5% 3 months 7.5 % >7.5% 7.5% >7.5% 6 months N/A N/A 10% >10% 1 year N/A N/A 20% >20% Body Fat Mild Moderate Mild Severe Muscle Mass Mild Moderate Mild Severe Fluid Accumulation Mild Moderate to Severe Mild Severe Reduced Tiller Worker Strength N/A Measurably Reduced N/A Measurably Reduced *[facility] Hospitalist, 2017 Based on the above, which of the following most accurately represents the patient's nutritional status? * Malnutrition (specify if mild, moderate, or severe) * Protein calorie malnutrition (specify if mild, moderate, or severe) * Other (please specify): * Unable to determine Use of terms such as suspected, likely, concern for, or probable (associated with a specific diagnosis that is being evaluated, monitored, or treated as if it exists) are acceptable and can be coded in the inpatient setting, when documented at the time of discharge. Thank you, Dorene Hinds CCS, CDIS Extension: [id number] Please use your independent medical judgment in providing your response. THIS QUERY IS PART OF THE PERMANENT MEDICAL RECORD Documented by User: Lopez Means DO 02/28/22 07:59 Retrospective Query Provider Response: Other (Severely malnourished in the context of chronic illness)
== END 2022-01-23 15:27 | disposition short-term general hospital (02) | DRG 280 ==
LOC: HO.ED 01-19 02:02 → HO.EDOVER 01-19 02:04 → HO.IMC 01-19 17:03
PROVIDERS: Admitting Provider Internal Medicine; Emergency Provider Emergency Medicine; PCP Family Medicine; Visit Provider Hospitalist
DX: I11.0 Hypertensive heart disease with heart failure (principal); I21.A1 Myocardial infarction type 2; E43 Unspecified severe protein-calorie malnutrition; I50.23 Acute on chronic systolic (congestive) heart failure; J18.9 Pneumonia, unspecified organism; J96.01 Acute respiratory failure with hypoxia; C85.90 Non-Hodgkin lymphoma, unspecified, unspecified site; D68.4 Acquired coagulation factor deficiency; Z68.1 Body mass index [BMI] 19.9 or less, adult; I48.91 Unspecified atrial fibrillation; Z21 Asymptomatic human immunodeficiency virus [HIV] infection status; E78.5 Hyperlipidemia, unspecified; Z95.2 Presence of prosthetic heart valve; F51.04 Psychophysiologic insomnia; Z20.822 Contact with and (suspected) exposure to COVID-19; Z88.8 Allergy status to other drugs, medicaments and biological substances; Z79.01 Long term (current) use of anticoagulants; Z79.899 Other long term (current) drug therapy
CPT/HCPCS: 36415; 70450; 71045; 71250; 80048; 80053; 80076; 80178; 82140; 82803; 82947; 83605; 83735; 83880; 84484; 85025; 85379; 85610; 87040; 87635; 93005; 93306; 94660; 96374; 99285; J0456; J0696; J1940; J2405; J2543; Q0163; Q9957